=== PATIENT | male | born 1975 | race Caucasian/White ===

== ENCOUNTER → 2016-10-24 | Outpatient (CLI) | payer MEDICARE ==
[~2016-10-24] MED LIST: AMLO5TAB2 PO; ASPI81TA2 PO; ERTA1VIA IV; FLUC200T8 PO; HYDR-4072 PO; IOHEXOL 300 MG/ML 100ml INJECTION ONE; LISI-621 PO; NORMAL SALINE 100 ML ONE; POLY17PO18 PO; PRAV20TA4 PO; SALINE FLUSH 10ml SYRINGE ONE
--- NOTE | 2016-10-24 16:28 | DI ---
Indication: ITS.REASON: K65.1 Peritoneal abscess PROCEDURE: CT ABD/PELVIS W/CONTRAST ONLY: Encounter: Subsequent Comparison: October 03, 2016 Technique: Axial CT images were performed through the abdomen and pelvis after the administration of intravenous contrast. Coronal and sagittal two-dimensional reformats. Automated Exposure Control and Iterative Reconstruction dose reducing techniques were utilized. Contrast: Omnipaque 300 100 mL Findings: The lung bases are grossly clear. The liver is stable in appearance. No bile duct dilatation. The gallbladder, spleen, pancreas, adrenal glands and kidneys are unchanged. No abdominal or pelvic adenopathy. One of the prior pelvic surgical drains has been removed with a left-sided drain remaining looping within the central pelvis near the bladder. There is a persistent ring-enhancing fluid collection above the bladder base interposed between it and the sigmoid colon as seen on multiple prior studies. This collection is slightly larger today on axial image #79 measuring 2.2 x 1.6 cm. This now measures 3 cm anteroposteriorly on sagittal image #36 compared to 2.2 cm previously. No additional fluid pockets noted. There is some stable wall thickening in the mid to distal sigmoid colon. No free air identified. No evidence of a bowel obstruction. Bone windows show postoperative changes in the lumbar spine. Impression: Interval increase in size of a ring-enhancing lesion along the superior margin of the bladder near the surgical drain that could represent a phlegmon or abscess. .
== END ==
LOC: IMA 13:59
PROVIDERS: ATTEND Surgery
DX: R93.8 Abnormal findings on diagnostic imaging of other specified body structures (principal); K65.1 Peritoneal abscess
CPT/HCPCS: 36569; 74177; C1751; J7050; Q9967

== ENCOUNTER 2016-11-05 05:46 | Inpatient (IN) | payer MEDICARE ==
[2016-11-05] VITALS (32 sets, daily range): BP systolic 112–139; BP diastolic 68–83; PULSE 104–120; RESP 12–24; TEMP 98–98.6; O2SAT 90–100; Ht 175.3 cm; Wt 79.9 kg
[~2016-11-05] VITALS: Ht 175.3 cm; Wt 79.9 kg
[~2016-11-05 05:46] MED LIST changes: -IOHEXOL 300 MG/ML 100ml INJECTION ONE; -NORMAL SALINE 100 ML ONE; -SALINE FLUSH 10ml SYRINGE ONE
--- OUTSIDE RECORDS SUMMARY | 2016-11-05 05:50 | XMS REPORT | Referral Summary ---
Author Author [facility] Organization [facility] Address Unknown Phone Unavailable Care Team Providers Care Finisher Plate Name Role Phone Leandro Champange Primary Care Physician [phone] Encounter VC Date(s): 09/15/16 - 09/15/16 [facility] [address] [address] [phone] Discharge Disposition: 01-Home or Self Care Attending Physician: Roopa Lorenzo MD Admitting Physician: Roopa Lorenzo MD Vital Signs Most recent to 1 oldest [Reference Range]: Temperature Oral 36.4 degC [35.8-37.3 degC] (09/15/16 1:24 PM) Peripheral Pulse 88 bpm Rate [60-100 bpm] (09/15/16 1:24 PM) Respiratory Rate 24 br/min [14-20 br/min] *HI* (09/15/16 1:24 PM) Blood Pressure 148/80 mmHg [90-140/60-90 mmHg] *HI* (09/15/16 1:24 PM) Problem List Condition Effective Dates Status Health Status Informant Acute Resolved pain(Confirmed) At risk for Resolved infection(Confirmed) 1 Hypertension(Confirm Active patient ed) Depression(Confirmed Active patient ) Obesity(Confirmed) Active patient 1Problem added automatically by system based on initiation of At Risk for Infection in Nutrition Plan of Care Allergies, Adverse Reactions, Alerts No Known Allergies Medications aspirin 81 mg oral tablet mg tabs, Oral, Daily, 0 Refill(s) Start Date: 09/15/16 Status: Ordered Cipro 500 mg oral tablet 500 mg 1 tabs, Oral, BID, X 14 days, # 28 tabs, 0 Refill(s), other reason (Rx) Start Date: 09/04/16 Stop Date: 09/18/16 Status: Ordered Communication Patient transfered from another hospital. Refer to records for current med list and last doses. Patient states they do not take any medications at home, 0 Refill(s) Start Date: 07/07/16 Status: Ordered Flagyl 500 mg oral tablet 500 mg 1 tabs, Oral, BID, X 14 days, # 28 tabs, 0 Refill(s), other reason (Rx) Start Date: 09/04/16 Stop Date: 09/18/16 Status: Ordered lisinopril 20 mg oral tablet mg tabs, Oral, Daily, 0 Refill(s) Start Date: 09/15/16 Status: Ordered Percocet 5/325 oral tablet 1-2 tabs, Oral, q4hr, as needed for pain, # 50 tabs, 0 Refill(s), other reason ( Rx) Start Date: 09/04/16 Stop Date: 07/10/17 Status: Ordered pravastatin 20 mg oral tablet mg tabs, Oral, Daily, 0 Refill(s) Start Date: 09/15/16 Status: Ordered Results No data available for this section Immunizations No data available for this section Procedures No data available for this section Social History Social History Type Response Smoking Status Current every day smoker Assessment and Plan Extracted from: Title: Office Visit Note Author: Jay Garcia MD Date: 09/15/16 Assessment/Plan This is a 41 yo male with recent diverticulitis refractory to initial conservative therapy presented on 07/07/16 treated with abx f/u on 08/[address] still had residual abscess sent home with script of abx did not fill script until today. -was reassured that he needs to take and finish his course of abx and with a low residual diet and stool softener and no more narcotic pain meds. -we will schedule f/u in office in 4-5 week and then discuss f/u colonoscopy at that time. I have discussed the assessment and plan with Dr. Prakash Troy, The Unassigned Surgery Chief,and he agrees with the above. The attending is Dr. Lorenzo. I discussed the patient with the Resident/[facility]/PA/RN/PharmD, reviewed the chart, and concur with the assessment and plan as above.
--- OUTSIDE RECORDS SUMMARY | 2016-11-05 05:50 | XMS REPORT ---
Author Author Laurent Champagne [facility] Address [address] [place] [address] Care Team Providers Care Risk Developer Name Role Phone Laurent Champagne Unavailable [phone] PROBLEMS Type Condition ICD9-CM Code [id number] Code Onset Dates Condition Status SNOMED Code Problem Diverticulosis of intestine, part unspecified, without perforation or abscess without bleeding K57.90 Active 46639231 Problem Essential (primary) hypertension I10 Active [id number] ALLERGIES Unknown Allergies SOCIAL HISTORY No smoking Hx information available PLAN OF CARE VITAL SIGNS MEDICATIONS Medication Instructions Dosage Frequency Start Date End Date Duration Status Lisinopril 10 MG Orally Once a day 1 tablet 24h 30 days Active RESULTS No Results PROCEDURES No Known procedures IMMUNIZATIONS No Known Immunizations
--- OUTSIDE RECORDS SUMMARY | 2016-11-05 05:51 | XMS REPORT | Continuity of Care Document ---
Author Author [facility] Organization [facility] Address Unknown Phone Unavailable Support Name Relationship Address Phone XENIA WALTERS MD Caregiver [address] [place] [phone] Unavailable XENIA WALTERS MD Caregiver [address] [place] [phone] Unavailable ZHANNA CHAMPAGNE DO Caregiver [address] [place] [address] Unavailable NICOLASA SEGURA MD Caregiver [address] [place] [address] [place] [phone] Unavailable ALESSANDRA CABRERA Next Of Kin [address] [place] [address] [id number] Insurance Providers Guarantor Anastacia Cabrera Address [address] [place], [place] [id number] Email DENIED 09-22-16 Payer Medicare Policy Number [id number] Subscriber's Name Anastacia Cabrera Relationship 18 Self Advance Directives Directive Response Recorded Date/Time Ordered Resuscitation Status Full Code 09/22/16 11:32am Resuscitation Documents on File No 09/22/16 12:05pm DPOA for Healthcare Only No 09/22/16 12:38pm Living Will No 09/22/16 12:05pm Problems Active Problems Medical Problem Onset Date Status Abdominal pain Unknown Acute Anxiety Unknown Acute Back pain Unknown Chronic Chronic back pain Unknown Diet-controlled diabetes mellitus Unknown Chronic Failure of outpatient treatment Unknown Acute HTN (hypertension) Unknown Chronic Hx of acute pancreatitis Unknown Ileus following gastrointestinal surgery Unknown Acute Kidney stones Unknown Obesity Unknown Chronic Shoulder pain Unknown Chronic Tobacco use disorder Unknown Chronic Surgical Problem Onset Date Status History of spinal arthrodesis ~2005 Chronic Past Problems Medical Problem Onset Date Abdominal abscess Unknown Abscess of sigmoid colon due to diverticulitis Unknown Acute diverticulitis Unknown Acute diverticulitis Unknown Diverticulitis Unknown Medications Current Home Medications Medication Dose Units Route Directions Days Qty Instructions Start Date Amlodipine Besylate 5 Mg Tablet 5 Mg Oral Daily 30 Tablet for elevated blood pressure 10/03/16 Aspirin 81 Mg Tab.chew 81 Mg Oral Daily 09/19/16 Ertapenem Sodium (Invanz) 1 G/Vial Vial 1 G Intraven Daily 30 Days 10/03/16 Fluconazole 200 Mg Tablet 2 Tab Oral Daily 30 Days 60 Tablet 10/03/16 Hydrocodone/Acetaminophen (Hydrocodon-Acetaminoph 7.5-325) 7.5-325 Tablet 1 Tab Oral Every 6 Hours as needed for Pain [address] or operate heavy machinery if taking this medication 10/03/16 Lisinopril 20 Mg Tablet 20 Mg Oral Daily 09/19/16 Polyethylene Glycol 3350 (Healthylax) 17 Gm Powd.pack 17 G Oral Daily 1 Bottle 10/03/16 Pravastatin Sodium 20 Mg Tablet 20 Mg Oral Daily 09/19/16 Past Home Medications Medication Directions Ordered Status Ciprofloxacin Hcl (Cipro) 500 Mg Tablet, 500 Mg Oral Twice A Day 09/19/16 Discontinued Ciprofloxacin Hcl (Cipro) 500 Mg Tablet, 500 Mg Oral Every 12 Hours 06/29/16 Discontinued Ibuprofen 200 Mg Tablet, 800 Mg Oral Every 4 Hours as needed for Pain Discontinued Metronidazole 500 Mg Tablet, 500 Mg Oral Twice A Day 09/19/16 Discontinued Metronidazole (Flagyl) 500 Mg Tablet, 500 Mg Oral Four Times Daily 06/29/16 Discontinued Social History Social History Problem Response Recorded Date/Time Onset Date Status Reason for Hospitalization abd pain and chronic abd abscess 10/03/2016 3: 25pm Not Applicable Not Applicable Hx Substance Use No 09/22/2016 9:03am Not Applicable Not Applicable Hx Alcohol Use No 09/22/2016 9:03am Not Applicable Not Applicable Has the pt used tobacco in the last 12 months Yes 09/22/2016 12:15pm Not Applicable Not Applicable Query Response Start Date Stop Date Smoking Status Current every day smoker Hospital Discharge Instructions Instructions: Care Instructions: Reason for Hospitalization: abd pain and chronic abd abscess I was in the hospital because (patient own words): diverticulitis infection on the colon Discharge Diet: diabetic diet Discharge Activity: No lifting > 15 pounds for a month following surgery. You can otherwise resume your usual activity as tolerated. Walk frequently to avoid forming blood clots in your legs. No tub baths or swimming with iv Midline in place. You may shower in 2 days, but will need to wrap your iv in plastic wrap then put a plastic bag taped around your arm. Follow Up Appointments: Follow up with Dr. Schmidt on Thursday10/07/16 at 9:00. Call [phone] if you need to reschedule your appointment. Pending Lab / Results: No Pending Lab Patient Instructions: - Do not drive, operate machinery, drink alcohol, or sign important papers for 24 hours or while taking pain medication. - Strip the drain tubing and empty your drain 3 times a day. Record you outputs and bring the record to your clinic visit with Dr. Schmidt. Wound/Incision Care: You can remove your bandage over the drain site in the right lower abdomen after [address] another bandage over the top if drainage continues. - You may shower after 48 hours. - No tub baths or swimming for 2 weeks. Pain Scale Utilized to Educate Patient: 0-10 Pain Scale Pain Management/Treatment: For management of you postoperative pain consider the following: - You may take Ibuprofen IN ADDITION to Tylenol or pain pills for pain. - You may take regular strength Tylenol (325 mg) INSTEAD of any pain pill dose. (No more than 10 tablets including pain pills and regular strength Tylenol in a 24 hour period). Expected Signs/Symptoms: mild abdominal discomfort Notify Physician If: Contact physician if any of the following occur: - Your pain is not adequately controlled. - You have persistent nausea or vomiting for more than 24 hours. - You have a fever over 101.5 degrees. - You develop redness, swelling, increasing pain, excessive bleeding, or excessive/foul smelling drainage at your incision site. - You have pain and/or swelling in your feet, calves, or legs. - You have difficulty breathing, abnormal cough, or chest pain. During office hours, call [phone]. After hours, please call [facility] at [phone] and have the video presentation operator page Dr. Schmidt or the covering surgeon. *In the event of an emergency, seek medical care at the nearest emergency room.* During Business Hours:: Please call the physician's office at Dr Champagne's or Dr Schmidt's office After Business Hours:: Please call [phone] and have the video presentation operator page the physician. Condition at time of discharge: Good Plan of Care Discharge Date 10/03/16 4:50pm Disposition 01 DISCHARGED HOME, SELF-CARE Instructions/Education Provided Diverticulitis (DC) Stephan-Carter Drain Care (DC) Exploratory Laparotomy (DC) Lysis of Abdominal Adhesions (DC) Prescriptions See Medication Section Additional Instructions/Education CBC with differential and CMP every Thursday while on IV Invanz and oral fluconazole. Fax to Dr. Naveen Mckeon and Dr. Mandy Schmidt. Care Plan and Goals See Discharge Instructions Section Functional Status Query Response Date Recorded Mobility Status Ambulatory October 03, 2016 3:25pm Assistive Devices None October 03, 2016 3:25pm Activity Limitations Pain October 03, 2016 3:25pm Feeding Ability Independent October 03, 2016 3:25pm Toileting Ability Independent October 03, 2016 3:25pm Grooming Ability Independent October 03, 2016 3:25pm Dressing Ability Independent October 03, 2016 3:25pm Driving Ability Independent October 03, 2016 3:25pm Housework Ability Independent October 03, 2016 3:25pm Meal Preparation Ability Independent October 03, 2016 3:25pm Stair Climbing Ability Independent October 03, 2016 3:25pm Ability to complete ADL's impeded by No change October 03, 2016 3:25pm Cognitive/Perceptual Impairments Impaired vision October 03, 2016 3:25pm Visual Assistive Devices Glasses With patient October 01, 2016 4:11pm Preferred Method of Learning Hands on October 01, 2016 4:11pm Allergies, Adverse Reactions, Alerts No known allergies. Immunizations Query Response on File Recorded Date/Time Hx Influenza Vaccination N Refuses 09/22/16 12:15pm Hx Pneumococcal Vaccination No 09/22/16 12:15pm Hx Influenza Vaccination N Refuses 09/22/16 12:15pm Influenza Vaccine Hx NONE 09/22/16 9:03am Vital Signs Acute Vital Signs Vital Response Date/Time Temperature (Fahrenheit) 98.3 deg F (96.8 - 99.1) 10/03/2016 8:04am Temperature (Calculated Celsius) 36.45571 degrees C (36.0 - 37.3) 10/03/2016 8:04am Temperature Source Oral 10/03/2016 8:04am Pulse Rate (adult) 82 bpm (60 - 100) 10/03/2016 8:04am Respiratory Rate 18 breaths/min (10 - 20) 10/03/2016 8:04am O2 Sat by Pulse Oximetry 96 % (90 - 100) 10/03/2016 8:04am Oxygen Delivery Method Room Air 10/03/2016 8:04am Oxygen Delivery Method Room Air 09/29/2016 2:59pm Oxygen Flow Rate 1.00 L/min 09/27/2016 10:29pm Blood Pressure 138/94 mm Hg 10/03/2016 8:04am Blood Pressure Source Automatic Cuff 10/03/2016 8:04am Height (Feet) 5 feet 10/02/2016 6:09pm Height (Inches) 9.00 inches 10/02/2016 6:09pm Weight (Kilograms) 88.900 kg 10/03/2016 8:03am Body Mass Index (BMI) 30.2 09/22/2016 11:49am Results Laboratory Results Test Name Result Units Flags Reference Collection Date/Time Result Date/ Time Comments C-Reactive Protein 56.9 MG/L H 0-9 07/07/2016 4:20am 07/07/2016 5:19am Plasma Lactate 0.9 MMOL/L 0.6-2.2 09/19/2016 3:04pm 09/19/2016 3:21pm White Blood Count 9.4 T/MM3 4.5-11.0 10/02/2016 4:10/02/2016 5: 40am Red Blood Count 4.08 M/MM3 L 4.50-5.90 10/02/2016 4:10/02/2016 5: 40am Hemoglobin 11.8 GM/DL L 13.5-17.5 10/02/2016 4:10/02/2016 5:40am Hematocrit 36.3 % L 41-53 10/02/2016 4:10/02/2016 5:40am Mean Corpuscular Volume 89.0 UM3 80-100 10/02/2016 4:10/02/2016 5: 40am Mean Corpuscular Hemoglobin 28.9 UUG 26-34 10/02/2016 4:2016 5:40am Mean Corpuscular Hemoglobin Concent 32.5 GM/DL 31-37 10/02/2016 4:10/02/2016 5:40am RDW Standard Deviation 41.6 FL 36.9-50.2 10/02/2016 4:10/02/2016 5 :40am Platelet Count 337 T/MM3 130-400 10/02/2016 4:10/02/2016 5:40am Mean Platelet Volume 10.5 UM3 9.4-12.4 10/02/2016 4:34am 10/02/2016 5: 40am Neutrophils (%) (Auto) 59.1 % 33-66 10/01/2016 3:48am 10/01/2016 5: 11am Lymphocytes (%) (Auto) 25.5 % 23-45 10/01/2016 3:48am 10/01/2016 5: 11am Monocytes (%) (Auto) 8.1 % 0-9.0 10/01/2016 3:48am 10/01/2016 5:11am Eosinophils (%) (Auto) 5.2 % H 0-4 10/01/2016 3:48am 10/01/2016 5:11am Basophils (%) (Auto) 0.7 % 0-2 10/01/2016 3:48am 10/01/2016 5:11am Immature Granulocyte % (Auto) 1.4 % H 0.0-0.5 10/01/2016 3:48am 2016 5:11am Absolute Neutrophils (auto) 6.1 T/MM3 1.8-7.7 10/01/2016 3:48am 2016 5:11am Absolute Lymphocytes (auto) 2.6 T/MM3 1-4.8 10/01/2016 3:48am 2016 5:11am Absolute Monocytes (auto) 0.8 T/MM3 0-0.8 10/01/2016 3:48am 10/01/2016 5:11am Absolute Eosinophils (auto) 0.5 T/MM3 0-0.5 10/01/2016 3:48am 2016 5:11am Absolute Basophils (auto) 0.1 T/MM3 0-0.2 10/01/2016 3:48am 10/01/2016 5:11am Absolute Immature Granulocyte (auto 0.14 T/MM3 H 0.00-0.03 10/01/2016 3: 48am 10/01/2016 5:11am Neutrophils % (Manual) 55.0 % 33-66 10/02/2016 4:34am 10/02/2016 6: 36am Band Neutrophils % 4.0 % 0-6 10/02/2016 4:34am 10/02/2016 6:36am Lymphocytes % (Manual) 26.0 % 23-45 10/02/2016 4:[facility] 10/02/2016 6: 36am Monocytes % (Manual) 6.0 % 0-9.0 10/02/2016 4:[facility] 10/02/2016 6:36am Eosinophils % (Manual) 7.0 % H 0-4 10/02/2016 4:34a 10/02/2016 6:36am Basophils % (Manual) 2.0 % 0-2 10/02/2016 4:[facility] 10/02/2016 6:36am Band Neutrophils # 0.4 T/MM3 10/02/2016 4:[facility] 10/02/2016 6:36am Absolute Neutrophils (Manual) 5.2 T/MM3 1.8-7.7 10/02/2016 4:[facility] 10/02 6:36am Lymphocytes # (Manual) 2.4 T/MM3 1-4.8 10/02/2016 4:[facility] 10/02/2016 6: 36am Monocytes # (Manual) 0.6 T/MM3 0-0.8 10/02/2016 4:[facility] 10/02/2016 6: 36am Eosinophils # (Manual) 0.7 T/MM3 H 0-0.5 10/02/2016 4:[facility] 10/02/2016 6: 36am Basophils # (Manual) 0.2 T/MM3 0-0.2 10/02/2016 4:[facility] 10/02/2016 6: 36am Red Cell Morphology Comment NORMAL 10/02/2016 4: 10/02/2016 6: 36am Prothromb Time International Ratio 1.16 H 0.76-1.04 09/23/2016 4:52am 09/23/2016 5:35am THERAPUTIC RANGE=2.00-3.00 FOR ANTI-THROMBOSIS THERAPUTIC RANGE=2.50-3.50 FOR IMPLANTED VALVE Icterus Index < 2 0-7 10/02/2016 4:[facility] 10/02/2016 5:55am Chemistry Specimen Hemolysis < 15 0-25 10/02/2016 4:[facility] 10/02/2016 5 :55am 0-25: Specimen Exhibited No Hemolysis. Turbidity < 20 0-20 10/02/2016 4:34a 10/02/2016 5:55am Sodium Level 139 MEQ/L 134-144 10/02/2016 4:10/02/2016 5:55am Potassium Level 4.0 MEQ/L 3.6-5 10/02/2016 4:10/02/2016 5:55am Chloride Level 103 MEQ/L 98-107 10/02/2016 4:10/02/2016 5:55am Carbon Dioxide Level 27 MEQ/L 22-30 10/02/2016 4:10/02/2016 5: 55am Anion Gap 9 MEQ/L 5-15 10/02/2016 4:10/02/2016 5:55am Blood Urea Nitrogen 10.0 MG/DL 9-10/02/2016 4:10/02/2016 5: 55am Creatinine 0.7 MG/DL L 0.8-1.5 10/02/2016 4:10/02/2016 5:55am BUN/Creatinine Ratio 14 RATIO 6-10/02/2016 4:10/02/2016 5:55am Glomerular Filtration Rate Calc 124 10/02/2016 4:10/02/2016 5: 55am Glucose Level 91 MG/DL 75-110 10/02/2016 4:10/02/2016 5:55am Calculated Osmolality 267 MOSM/KG 261-280 10/02/2016 4:10/02/2016 5:55am Calcium Level 8.9 MG/DL 8.4-10.2 10/02/2016 4:10/02/2016 5:55am Phosphorus Level 4.0 MG/DL 2.5-4.5 09/27/2016 4:2209/27/2016 5:15am Total Bilirubin 0.60 MG/DL 0.20-1.30 09/29/2016 3:55am 09/29/2016 6: 03am Alkaline Phosphatase 73 U/L 38-126 09/29/2016 3:55am 09/29/2016 6:03am Total Protein 6.5 G/DL 6.3-8.2 09/29/2016 3:55am 09/29/2016 6:03am Albumin 3.4 G/DL L 3.5-5.0 09/29/2016 3:55am 09/29/2016 6:03am Globulin 3.1 G/DL 2.4-3.6 09/29/2016 3:55am 09/29/2016 6:03am Albumin/Globulin Ratio 1.1 RATIO 1.1-2.2 09/29/2016 3:55am 09/29/2016 6 :03am Aspartate Amino Transf (AST/SGOT) 19 U/L 17-59 09/29/2016 3:55am 2016 6:03am Alanine Aminotransferase (ALT/SGPT) 31 U/L 21-72 09/29/2016 3:55am 6:03am Lipase 35 U/L 23-300 09/22/2016 9:59am 09/22/2016 10:24am Magnesium Level 2.1 MG/DL 1.6-2.3 09/30/2016 3:56am 09/30/2016 5:33am Procalcitonin 0.09 NG/ML 09/29/2016 3:55am 09/29/2016 6:41am PCT </= 0.5 ng/mL - sepsis not likely; PCT >0.5 and </=2 ng/mL - sepsis possible; PCT >2 ng/mL - sepsis likely; PCT >/=10 ng/mL - systemic inflammatory response - sepsis or septic shock highly indicated. Vancomycin Level Trough 20.35 UG/ML H 15-20 10/03/2016 1:29am 2016 2:00am Hemoglobin A1c 6.6 % 6.1-7.9 09/22/2016 9:59am 09/22/2016 1:25pm <6.0 NON-DIABETIC RANGE 6.1-7.9 [facility] TARGET RANGE >8.0 ACTION SUGGESTED Urine Collection Type CLEANCATCH-MIDSTREAM 10/01/2016 9:32am 2016 9:44am Urine Color YELLOW YELLOW 10/01/2016 9:32am 10/01/2016 9:44am Urine Turbidity CLEAR CLEAR 10/01/2016 9:32am 10/01/2016 9:44am Urine Specific [place] 1.025 1.015-1.025 10/01/2016 9:32am 2016 9:44am Urine pH 6.5 5.0-8.0 10/01/2016 9:32am 10/01/2016 9:44am Urine Leukocyte Esterase NEGATIVE NEGATIVE 10/01/2016 9:32am 2016 9:44am Urine Nitrite NEGATIVE NEGATIVE 10/01/2016 9:32am 10/01/2016 9:44am Urine Protein NEGATIVE NEGATIVE 10/01/2016 9:32am 10/01/2016 9:44am Urine Glucose (UA) NEGATIVE NEGATIVE 10/01/2016 9:32am 10/01/2016 9: 44am Urine Ketones NEGATIVE NEGATIVE 10/01/2016 9:32am 10/01/2016 9:44am Urine Urobilinogen 0.2 EU/DL NORMAL 10/01/2016 9:32am 10/01/2016 9: 44am Urine Bilirubin NEGATIVE NEGATIVE 10/01/2016 9:32am 10/01/2016 9: 44am Urine Blood TRACE-INTACT A NEGATIVE 10/01/2016 9:32am 10/01/2016 9: 44am Urinalysis Comment MICROSCOPIC NOT IND. 10/01/2016 9:32am 2016 9:44am Glucometer 116 mg/dL H 75-110 10/03/2016 2:20pm 10/03/2016 2:36pm Microbiology Results Procedure Source Organism/Result Collection Date/Time Result Date/Time Result Status Surgical Culture Abscess ESCHERICHIA COLI 09/24/2016 2:45pm 09/28/2016 8: 09am Final ESCHERICHIA COLI#2 09/24/2016 2:45pm 09/28/2016 8:09am Final Blood Culture Cath/Port/Line/Picc NO GROWTH AFTER 4 DAYS 09/29/2016 12: 18am 10/03/2016 12:22am Preliminary Name: ANASTACIA CABRERA Unit #: [id number] : 1975 Sex: M DISCHARGE SUMMARY Admit Date: 09/22/16 Report #: [id number] [facility] General Date Date DATE: 10/03/16 TIME: 15:23 Attending Physician Xenia Walters MD Admitting Physician Xenia Walters MD Consulting Physician Naveen Mckeon MD Admitting Diagnosis acute diverticulitis Discharge Diagnosis Chronic diverticular abscess Leukocytosis Fever Abdominal pain Postop ileus Type 2 diabetes mellitus-diet controlled Hypertension Hyperlipidemia Chronic back pain Tobacco use disorder Anxiety Procedures 09/24/2016 -surgical procedure by Dr. Schmidt Diagnostic laparoscopy with lysis of adhesions, conversion to exploratory laparotomy, open lysis of pelvic adhesions and drainage of intra-abdominal abscess with drain placement 2 , primary incisional hernia repair, intraoperative ultrasound of the lower abdomen in the region of the bladder. Laboratory Item Value Date Time Hemoglobin A1c 6.6 % 09/22/16 0959 Laboratory Tests Test 10/02/16 04:34 10/02/16 05:28 10/02/16 13:54 10/02/16 21:09 White Blood Count 9.4T/MM3 (4.5-11.0) Red Blood Count 4.08M/MM3 (4.50-5.90) Hemoglobin 11.8GM/DL (13.5-17.5) Hematocrit 36.3% (41-53) Mean Corpuscular Volume 89.0UM3 (80-100) Mean Corpuscular Hemoglobin 28.9UUG (26-34) Mean Corpuscular Hemoglobin Concent 32.5GM/DL (31-37) RDW Standard Deviation 41.6FL (36.9-50.2) Platelet Count 337T/MM3 (130-400) Mean Platelet Volume 10.5UM3 (9.4-12.4) Neutrophils % (Manual) 55.0% (33-66) Band Neutrophils % 4.0% (0-6) Lymphocytes % (Manual) 26.0% (23-45) Monocytes % (Manual) 6.0% (0-9.0) Eosinophils % (Manual) 7.0% (0-4) Basophils % (Manual) 2.0% (0-2) Absolute Neutrophils (Manual) 5.2T/MM3 (1.8-7.7) Band Neutrophils # 0.4T/MM3 Lymphocytes # (Manual) 2.4T/MM3 (1-4.8) Monocytes # (Manual) 0.6T/MM3 (0-0.8) Eosinophils # (Manual) 0.7T/MM3 (0-0.5) Basophils # (Manual) 0.2T/MM3 (0-0.2) Red Cell Morphology Comment Normal Turbidity < 20 (0-20) Sodium Level 139MEQ/L (134-144) Potassium Level 4.0MEQ/L (3.6-5) Chloride Level 103MEQ/L (98-107) Carbon Dioxide Level 27MEQ/L (22-30) Anion Gap 9MEQ/L (5-15) Blood Urea Nitrogen 10.0MG/DL (9-20) Creatinine 0.7MG/DL (0.8-1.5) Glomerular Filtration Rate Calc 124 BUN/Creatinine Ratio 14RATIO (6-26) Glucose Level 91MG/DL (75-110) Calculated Osmolality 267MOSM/KG (261-280) Calcium Level 8.9MG/DL (8.4-10.2) Icterus Index < 2 (0-7) Chemistry Specimen Hemolysis < 15 (0-25) Glucometer 96mg/dL (75-110) 120mg/dL (75-110) 141mg/dL (75-110) Test 10/03/16 01:29 10/03/16 05:31 10/03/16 10:34 10/03/16 14:20 Vancomycin Level Trough 20.35UG/ML (15-20) Glucometer 103mg/dL (75-110) 99mg/dL (75-110) 116mg/dL (75-110) Microbiology GRAM STAIN Final 09/25/16-1229 RESULT FEW GRAM NEGATIVE RODS MANY WBCS SURGICAL SITE CULTURE Final 09/28/16-0811 Organism 1 ESCHERICHIA COLI Organism 2 ESCHERICHIA COLI#2 E COLI E COLI#2 INTERP LE INTERP LE ------ --------- ------ --------- AMPICILLIN R >=32 R >=32 CEFAZOLIN R >=64 S <=4 CEFEPIME S <=1 S <=1 CEFTAZIDIME S <=1 S <=1 CEFTRIAXONE S <=1 S <=1 ERTAPENEM S <=0.5 S <=0.5 GENTAMICIN S <=1 S <=1 LEVOFLOXACIN R >=8 R >=8 MEROPENEM S <=0.25 S <=0.25 TIGECYCLINE S <=0.5 S <=0.5 TOBRAMYCIN S <=1 S <=1 TRIMETH/SULFA R >=320 R >=320 PIPERACILL/TAZO R >=128 S <=4 SURGICAL SITE CULTURE Preliminary (changed) 09/28/16-0809 Organism 1 ESCHERICHIA COLI Organism 2 ESCHERICHIA COLI#2 Blood cultures 2 from 09/29/2016 are negative after [address] abdomen and pelvis on 10/03/2016 shows interval improvement in the small abscess along the superior margin of the bladder with a small area of extraluminal fluid remaining with a nearby surgical drain. No evidence of contrast extravasation to confirm a fistula. Mild sigmoid colonic wall thickening probably related to the recent surgery. Chest x-ray 09/29/2016 done for fever shows bibasilar subsegmental atelectasis. Postop KUB 09/27/2016 shows colonic ileus Postop KUB 09/29/2016 shows continued findings of adynamic ileus probably involving the colon, mildly improved KUB 10/01/2016 shows improving ileus which has nearly resolved. Moderate stool in the right colon. History of Present Illness Patient is a 41 yr old male who present to the emergency room on Thursday09/19/16 for abdominal pain. He was found to have persistent findings of pericolonic diverticular abscess superimposed between the sigmoid colon and the bladder. This is a similar appearance and abscess from last June 2016. He was started on Flagyl and Cipro orally and instructed to follow-up with primary care and/or general surgeon. He returns to the emergency room today for ongoing abdominal pain. Basic laboratory studies were repeated. White count was found to be improved at 9.3, which is down from Thursday at 12.5. Remaining CBC was normal. Sodium is 142, potassium 4.4, BUN 12, creatinine 0.7, glucose 133. LFTs were normal. A urinalysis is obtained that was unremarkable. Given increasing pain with known presence of the abscess. The hospitalist services were contacted and accepted patient for inpatient admission for further evaluation and treatment. Dr. Schmidt was contacted as the on-call general surgeon. Patient is seen on initial examination. He is alert and oriented, in no acute distress. Complains of having bilateral lower abdominal discomfort that continues to worsen over the past 3 days. Denies vomiting or diarrhea. Was able to eat 3 hot dogs and chips last evening, however , has not had an appetite this morning. Hospital Course Will admit patient as inpatient status under the care of Dr. Walters for abdominal pain with known abdominal abscess. Well switch patient to IV Zosyn for antimicrobial coverage. Consultations placed to Dr. Schmidt for further surgical evaluation and recommendations. Patient does indicate that he is a type II diabetic that is diet controlled. We will obtain a hemoglobin A1c. Accu-Cheks as needed Patient does indicate that he had a black stool. We will obtain a stool for occult blood Will review home medications Dilaudid as needed for pain control and Zofran as needed for nausea 09/23/2016-Dr. Walters Abdominal abscess secondary to diverticulitis. Per Dr. Schmidt, this had not resolved after original occurrence in June 2016. The patient was originally sent to [place] for CT-guided drainage but the ultimate decision was to treat with antibiotics. He was then later seen for possible CT guided drainage again and they decided that the area where the abscess was located was not amenable to CT-guided drainage. Abdominal pain-improved on narcotics Diet controlled diabetes-give sliding scale insulin as needed. A1c is 6.6 Hypertension-continue lisinopril as tolerated 09/24/16 Underwent open laparotomy with drainage of abscess and placement drains earlier today. Discussed with Dr. Schmidt. Continue IV narcotics for pain control, IV lorazepam added per family request for anxiety. Patient reports that he has tolerated Percocet better than [place] for pain management-change made. Addition of oral narcotic will hopefully smooth pain control. Diabetes well controlled, continue to monitor with resumption of diet over the next couple of days. Blood pressure modestly elevated in the immediate postoperative time. 09/25/16 Underwent open laparotomy with drainage of abscess and placement drains . Scheduled [place] 7.5-2 tablets every 6 hours initiated to provide basal pain control, IV Dilaudid continued for breakthrough pain. Oral lorazepam initiated in conjunction with IV for anxiety. LYRIC [place], up in chair/ambulate today. Diabetes, blood pressure both stable. Gram stain pending from surgical sample-will call bacteriology to clarify. 09/26/16 Underwent open laparotomy with drainage of abscess and placement drains . Wound culture positive for multidrug-resistant Escherichia coli-converted from Zosyn to ertapenem. If additional organisms are not identified can potentially simplify to ceftriaxone. Pain control improving on [place] 7.5-2 tablets every 6 hours and IV Dilaudid continued for breakthrough pain. Remains on clear liquids, check KUB in the morning. Diabetes stable, diet controlled. Blood pressure elevated repetitively today-amlodipine added to her home dose of lisinopril. Decrease rate of IV fluids, taking oral fluids well. White count slightly elevated today, low-grade fever overnight. Reassess in the morning. 09/27/16 Underwent open laparotomy with drainage of abscess and placement drains . Wound culture positive for multidrug-resistant Escherichia coli-converted from Zosyn to ertapenem. If additional organisms are not identified can potentially simplify to ceftriaxone. Pain control improving on [place] 7.5-2 tablets every 6 hours and IV Dilaudid continued for breakthrough pain-decreased use of Dilaudid over the past 24 hours. Dulcolax suppositories every 6 hours for ileus, reassess need tomorrow. Continued ambulation recommended. Remains on clear liquids. Diabetes stable, diet controlled. Blood pressure improved with addition of amlodipine. Decrease rate of IV fluids, taking oral fluids well. Continues to have low-grade fever and minor leukocytosis-may require CT imaging. 09/28/16 Oral intake diminished over the past 24 hours with emesis today; resume IV fluids. Patient describes uncontrolled pain but use of IV narcotics has decreased and his going 3-6 hours between use of Dilaudid compared to consistent 2 hour use earlier in the stay. Continue Dulcolax suppositories every 6 hours for ileus, recheck obstructive series in the morning Continue clear liquids. Diabetes stable, diet controlled. Blood pressure improved with addition of amlodipine. Fever and leukocytosis have improved with change in antibiotics. Continue to monitor. 09/29/16 Underwent open laparotomy with drainage of abscess and placement drains . Recurrent fever overnight and white count slightly higher. Discussed with surgery; if persistent fevers may require repeat imaging or ID consultation. BCx2 obtained overnight and Vanc added. Clinically looks better today and chest x-ray unremarkable other than atelectasis. Procalcitonin low. Patient encouraged to increase activity and lung expansion therapies. Wound culture positive for 2 strains multidrug-resistant Escherichia coli- converted from Zosyn to ertapenem on 09/26. Oral intake marginal. Patient reports less pain today but Dilaudid use has escalated in the past 24 hours. Dulcolax suppositories every 6 hours as needed for ileus. Continue clear liquids. Diabetes stable, diet controlled. Blood pressure improved with addition of amlodipine. 09/30: [place]. Underwent open laparotomy with drainage of abscess and placement drains . Off and on fevers since surgery. Max temperature 99.3 today. WBC trending down at 11.7 (down from 14.9 yesterday). If fever persists or worsen, consider repeat imaging and/or ID consultation. Blood cultures x2 negative after 24 hours. Continue to monitor. Continue Invanz and Vancomycin for empiric coverage of abdominal pathogens while awaiting culture results. Patient has ambulated and encouraged to increase activity and lung expansion therapies. Review of incentive spirometry technique and importance discussed. Wound culture positive for 2 strains multidrug-resistant Escherichia coli- converted from Zosyn to ertapenem on 09/26. Diet advanced to full. Recommended transitioning slowly to solid foods including starting with soap and crackers as he complained of nausea with peanut butter and jelly sandwich. Complains of severe pain despite frequent dosages of Dilaudid and is noted to be watching the clock during exam, waiting until he can call for more. Consider tapering IV pain medication and transitioning to oral pain medication. Dulcolax suppositories every 6 hours as needed for ileus. Diabetes stable, diet controlled. Blood sugars stable. Continue to monitor closely. Blood pressure improved but remains slightly elevated at 143/98. Continue to monitor closely with recent addition of amlodipine. Overall, he is doing better and making slow gains. Anticipate discharge in near future. 09/30/2016-Dr. Colin I have independently evaluated and examined this patient. I reviewed the chart, the patient's history, and the AGENCY SALES REPRESENTATIVE's documented findings as above. We discussed and formulated the assessment and plan as above with additions as below: Anastacia reports having 2 small stools yesterday without suppositories preceding them. He continues to complain of nausea but has had no emesis. Diet was advanced earlier. He denies lightheadedness or dyspnea. He is complaining of dysuria this evening and reports abdominal pain is persistent and localized in the right lower quadrant and over the bladder. Examination reveals the patient to be alert. There is no scleral icterus area respirations are nonlabored. The abdomen is soft and unable to palpate the abdomen more than in the past but there is persistent tenderness in the right lower quadrant with voluntary guarding. Maximum temperature last night was 99.4 and white count is down after addition of vancomycin 2 days ago. Cannot exclude the possibility of staph or enterococcus the abscess that was not cultured. Continues to use high-dose narcotics-Dilaudid dose decreased and frequency extended to every 3 hours, oral narcotics available. Tramadol added as an alternative. KUBs to be reassessed tomorrow morning. Check UA. 10/03/2016-Dr. Walters The patient is feeling very well today. He feels ready for discharge. Pain is controlled with [place]. He is eating and drinking well. He states his stools are like water, likely secondary to MiraLAX 3 times a day. This can be decreased to once a day. Dr. Mckeon did see the patient and recommends Invanz 1 g IV daily for one month and Diflucan 400 mg once daily. Repeat CT scan of the abdomen was obtained with results as above. This does show improvement. Dr. Schmidt did review the CT scan and stated to me that he felt he was stable for dismissal to home. He will need follow-up with him in the office next week for suture removal and recheck. The patient was notified that if he should develop fevers, worsening abdominal pain, severe diarrhea that does not resolve with stopping MiraLAX, or any other concerns he should call his doctor or go to the emergency room. He does appear stable for dismissal to home today. He knows he cannot take dry 15 taking narcotics. We discussed the risk for addiction. I would recommend the smallest amount of narcotics needed for pain control, and only take for moderate or severe pain. Greater than 30 minutes of time was spent on dismissal day seeing and evaluating the patient, talking with consultants, and arranging discharge planning. I will notify Dr. Champagne of discharge plans. Problems: (1) Ileus following gastrointestinal surgery Status: Acute (2) Abdominal pain Status: Acute (3) Abdominal abscess Status: Chronic Assessment & Plan: Abscess was present in June 2016-chronic. This had never resolved. (4) Diet-controlled diabetes mellitus Status: Chronic Assessment & Plan: A1C 6.6 on 09/22/16 (5) Anxiety Status: Acute (6) HTN (hypertension) Status: Chronic (7) Back pain Status: Chronic (8) Tobacco use disorder Status: Chronic (9) History of spinal arthrodesis Onset Date: ~ 2005 Status: Chronic Code Status Full Code Home Meds Active Scripts Ertapenem Sodium (Invanz) 1 G/Vial Vial, 1 G IV DAILY for 30 Days Prov:XENIA WALTERS MD 10/03/16 Hydrocodone/Acetaminophen (Hydrocodon-Acetaminoph 7.5-325) 7.5-325 Tablet, 1 TAB PO Q6H Y for pain, #[address] or operate heavy machinery if taking this medication Prov:XENIA WALTERS MD 10/03/16 Fluconazole (Fluconazole) 200 Mg Tablet, 2 TAB PO DAILY for 30 Days, #60 TAB Prov:XENIA WALTERS MD 10/03/16 Polyethylene Glycol 3350 (Healthylax) 17 Gm Powd.pack, 17 G PO DAILY, #1 BOTTLE Prov:XENIA WALTERS MD 10/03/16 Amlodipine Besylate (Amlodipine Besylate) 5 Mg Tablet, 5 MG PO DAILY, #30 TAB for elevated blood pressure Prov:XENIA WALTERS MD 10/03/16 Reported Medications Lisinopril (Lisinopril) 20 Mg Tablet, 20 MG PO DAILY 09/19/16 Aspirin (Aspirin) 81 Mg Tab.chew, 81 MG PO DAILY 09/19/16 Pravastatin Sodium (Pravastatin Sodium) 20 Mg Tablet, 20 MG PO DAILY 09/19/16 Discontinued Reported Medications Ciprofloxacin HCl (Cipro) 500 Mg Tablet, 500 MG PO BID for 14 Days starting 09/08/16 09/19/16 Metronidazole (Metronidazole) 500 Mg Tablet, 500 MG PO BID for 14 Days starting 09/08/16 09/19/16 Ibuprofen (Ibuprofen) 200 Mg Tablet, 800 MG PO Q4H Y for PAIN, TAB 06/29/16 Face to Face Encounter I met with patient on the day of dismissal and discussed follow up appointments , medications, and safety plan. Discharge Disposition Dismiss to home in stable condition Copies To 1: NAVEEN MCKEON MD; MANDY SCHMIDT MD; ZHANNA CHAMPAGNE STEPHANIE L MD Oct 03, 2016 15:26 Addendum: XENIA WALTERS MD on 10/03/16 @ 15:42 Follow-up with Dr. Champagne in 1-2 weeks for diabetes and hypertension Follow-up with Dr. Naveen Mckeon in 3 weeks. CBC with differential, and CMP every Thursday while on IV Invanz and oral fluconazole. Fax to Dr. Mckeon and Dr. Schmidt Procedures Procedure Status Date Provider(s) Routine venipuncture Completed 09/19/16 Ct abd & pelvis w/o contrast Completed 09/19/16 Comprehen metabolic panel Completed 09/19/16 Urinalysis auto w/o scope Completed 09/19/16 Assay of lactic acid Completed 09/19/16 Assay of lipase Completed 09/19/16 Complete cbc w/auto diff wbc Completed 09/19/16 Hydrate iv infusion add-on Completed 09/19/16 Hydrate iv infusion add-on Completed 09/19/16 Ther/proph/diag inj iv push Completed 09/19/16 Tx/pro/dx inj new drug addon Completed 09/19/16 Tx/pro/dx inj same drug lens cementer Completed 09/19/16 Emergency dept visit Completed 09/19/16 293594"INJECTION, HYDROMORPHONE, UP TO 4 MG" Completed 09/19/16 697833"INJECTION, HYDROMORPHONE, UP TO 4 MG" Completed 09/19/16 306200"INJECTION, ONDANSETRON HYDROCHLORIDE, PER 1 MG" Completed 09/19/16 [id number]"INFUSION, NORMAL SALINE SOLUTION , 1000 CC" Completed 09/19/16 Exploratory laparotomy Completed 09/24/16 MANDY SCHMIDT MD Encounters Encounter Location Arrival/Admit Date Discharge/Depart Date Attending Provider Discharged Inpatient [facility] 09/22/16 11:31am 10/03/16 4:50pm XENIA WALETRS MD Departed Emergency Room [facility] 09/19/16 2:17pm 09/19/16 5: 55pm MARIANNE PAYAN MD Discharged Inpatient [facility] 07/03/16 10:26pm 07/07/16 7:08pm EMIR MEDEROS MD
--- OUTSIDE RECORDS SUMMARY | 2016-11-05 05:51 | XMS REPORT | Referral Summary ---
Author Author [facility] Organization [facility] Address Unknown Phone Unavailable Care Team Providers Care Forms Builder Name Role Phone Leandro Champagne Primary Care Physician [phone] Encounter VC Date(s): 09/02/16 - 09/02/16 [facility] [address] [place] [address] Discharge Disposition: 01-Home or Self Care Attending Physician: Ethan Sultana DO Admitting Physician: Ethan Sultana DO Vital Signs No data available for this section Problem List Condition Effective Dates Status Health Status Informant Acute Resolved pain(Confirmed) At risk for Resolved infection(Confirmed) 1 Hypertension(Confirm Active patient ed) Depression(Confirmed Active patient ) Obesity(Confirmed) Active patient 1Problem added automatically by system based on initiation of At Risk for Infection in Nutrition Plan of Care Allergies, Adverse Reactions, Alerts No Known Allergies Medications Communication Patient transfered from another hospital. Refer to records for current med list and last doses. Patient states they do not take any medications at home, 0 Refill(s) Start Date: 07/07/16 Status: Ordered Results No data available for this section Immunizations No data available for this section Procedures No data available for this section Social History Social History Type Response Smoking Status Current every day smoker Assessment and Plan No data available for this section
--- OUTSIDE RECORDS SUMMARY | 2016-11-05 05:51 | XMS REPORT | Referral Summary ---
Author Author [facility] Organization [facility] Address Unknown Phone Unavailable Care Team Providers Care Mathematical Engineer Name Role Phone No PCP, Pt States Primary Care Physician [phone] Encounter VC Date(s): 07/07/16 - 07/09/16 [facility] [address] [place] [address] Discharge Diagnosis: Diverticulitis Discharge Disposition: 01-Home or Self Care Attending Physician: Seth Orozco MD Admitting Physician: Seth Orozco MD Vital Signs Most recent to 1 oldest [Reference Range]: Temperature Oral 37.2 degC [35.8-37.3 degC] (07/09/16 3:53 PM) Peripheral Pulse 89 bpm Rate [60-100 bpm] (07/08/16 8:00 PM) Heart Rate Monitored 82 bpm [60-100 bpm] (07/09/16 3:53 PM) Respiratory Rate 20 br/min [14-20 br/min] (07/09/16 3:53 PM) Blood Pressure 126/81 mmHg [90-140/60-90 mmHg] (07/09/16 3:53 PM) Mean Arterial 121 mmHg Pressure, Cuff (07/08/16 6:55 AM) SpO2 95 % (07/09/16 3:53 PM) Problem List Condition Effective Dates Status Health Status Informant Acute Resolved pain(Confirmed) At risk for Resolved infection(Confirmed) 1 Hypertension(Confirm Active patient ed) Depression(Confirmed Active patient ) Obesity(Confirmed) Active patient 1Problem added automatically by system based on initiation of At Risk for Infection in Nutrition Plan of Care Allergies, Adverse Reactions, Alerts No Known Allergies Medications Ceftin 500 mg oral tablet 500 mg 1 tabs, Oral, BID, # 28 tabs, 0 Refill(s) Start Date: 07/09/16 Stop Date: 07/23/16 Status: Ordered Communication Patient transfered from another hospital. Refer to records for current med list and last doses. Patient states they do not take any medications at home, 0 Refill(s) Start Date: 07/07/16 Status: Ordered Flagyl 500 mg oral tablet 500 mg 1 tabs, Oral, BID, # 28 tabs, 0 Refill(s) Start Date: 07/09/16 Stop Date: 07/23/16 Status: Ordered oxyCODONE-acetaminophen 7.5 mg-325 mg oral tablet 2 tabs, Oral, q4hr, Pain Moderate (4-6), # 20 tabs, 0 Refill(s), other reason ( Rx) Start Date: 07/09/16 Stop Date: 08/08/16 Status: Ordered Results Hematology Most recent to 1 oldest [Reference Range]: WBC [4.8-10.8 9.2 10*3/uL 10*3/uL] (07/09/16 1:53 PM) RBC [4.60-6.20] 4.99 (07/09/16 1:53 PM) Hgb [14.0-18.0 15.1 gm/dL gm/dL] (07/09/16 1:53 PM) Hct [42.0-52.0 %] 44.0 % (07/09/16 1:53 PM) MCV [82.0-99.0 fL] 88.2 fL (07/09/16 1:53 PM) MCH [27.0-32.0 pg] 30.3 pg (07/09/16 1:53 PM) MCHC [32.0-36.0 34.3 gm/dL gm/dL] (07/09/16 1:53 PM) RDW [11.5-14.5 %] 13.1 % (07/09/16 1:53 PM) Platelet [150-400 274 10*3/uL 10*3/uL] (07/09/16 1:53 PM) MPV [9.4-12.3 fL] 10.3 fL (07/09/16 1:53 PM) Immature 0.6 % Granulocytes (07/08/16 5:45 AM) [0.0-1.0 %] Neutrophils [51-75 61 % %] (07/08/16 5:45 AM) Lymphocytes [20-46 24 % %] (07/08/16 5:45 AM) Monocytes [4-11 %] 11 % (07/08/16 5:45 AM) Eosinophils [0-4 %] 2 % (07/08/16 5:45 AM) Basophils [0-2 %] 1 % (07/08/16 5:45 AM) Neutro Absolute 6.18 10*3 [1.90-7.00 10*3] (07/08/16 5:45 AM) Lymph Absolute 2.41 10*3 [0.80-3.30 10*3] (07/08/16 5:45 AM) [place] Absolute 1.11 10*3 [0.30-1.00 10*3] *HI* (07/08/16 5:45 AM) Eos Absolute 0.22 10*3 [0.00-0.50 10*3] (07/08/16 5:45 AM) Baso Absolute 0.08 10*3 [0.00-0.20 10*3] (07/08/16 5:45 AM) Nucleated RBC 0.0 /100 WBC Automated [0 /100 (07/08/16 5:45 AM) WBC] Chemistry Most recent to 1 oldest [Reference Range]: Sodium Lvl [136-144 136 mEq/L mEq/L] (07/08/16 5:45 AM) Potassium Lvl 3.7 mEq/L [3.6-5.1 mEq/L] (07/08/16 5:45 AM) Chloride [99-109 101 mEq/L mEq/L] (07/08/16 5:45 AM) CO2 [22-32 mEq/L] 26 mEq/L (07/08/16 5:45 AM) AGAP [3-20] 9 (07/08/16 5:45 AM) BUN [4-20 mg/dL] 4 mg/dL (07/08/16 5:45 AM) Glucose Lvl [70-100 102 mg/dL mg/dL] *HI* (07/08/16 5:45 AM) Creatinine Lvl 0.85 mg/dL [0.64-1.27 mg/dL] (07/08/16 5:45 AM) eGFR [>60] >60 1 (07/08/16 5:45 AM) Calcium Lvl 9.0 mg/dL [8.6-10.0 mg/dL] (07/08/16 5:45 AM) 1Result Comment: Multiply eGFR results by 1.21 for race. Immunizations No data available for this section Procedures No data available for this section Social History Social History Type Response Smoking Status Current every day smoker Assessment and Plan No data available for this section
--- OUTSIDE RECORDS SUMMARY | 2016-11-05 05:51 | XMS REPORT ---
Author Author Laurent Champagne Organization [facility] Address [address] [place] [address] Care Team Providers Care Offender Employment Specialist Name Role Phone DaphneLaurent quevedo Unavailable [phone] PROBLEMS Type Condition ICD9-CM Code IIS80-CV Code Onset Dates Condition Status SNOMED Code Problem Diverticulosis of intestine, part unspecified, without perforation or abscess without bleeding K57.90 Active 58717150 Problem Essential (primary) hypertension I10 Active 30262438 Assessment Diverticulosis of intestine, part unspecified, without perforation or abscess without bleeding K57.90 Jul, Active 99276085 ALLERGIES Substance Reaction Event Type Date Status N.K.D.A. Unknown Non Drug Allergy Jul, Unknown SOCIAL HISTORY No smoking Hx information available PLAN OF CARE VITAL SIGNS Weight 198.2 lbs 2016-07-23 Height 69 in 2016-07-23 Temperature 98.4 degrees Fahrenheit 2016-07-23 BMI 29.27 kg/m2 2016-07-23 Heart Rate 77 /min 2016-07-23 Respiratory Rate 16 /min 2016-07-23 Oximetry 97 % 2016-07-23 Blood pressure systolic 132 mm Hg 2016-07-23 Blood pressure diastolic 88 mm Hg 2016-07-23 MEDICATIONS Medication Instructions Dosage Frequency Start Date End Date Duration Status Lisinopril 10 MG Orally Once a day 1 tablet 24h 30 days Active RESULTS No Results PROCEDURES Procedure Date Ordered Related Diagnosis Body Site [facility] visit Established Patient Jul 23, 2016 [facility] visit Annual Exam Jul 23, 2016 Preventive Care New Pt. Age 40-64 Jul 23, 2016 IMMUNIZATIONS No Known Immunizations
[2016-11-05 06:36] LABS: ANION GAP 13 MEQ/L (5-15); BUN/CREATININE RATIO 11 RATIO (6-26); CALCIUM 10.4 MG/DL (8.4-10.2); CHLORIDE 103 MEQ/L (98-107); CO2 - CARBON DIOXIDE 26 MEQ/L (22-30); CREATININE 0.7 MG/DL (0.8-1.5); GLOMERULAR FILTRATION RATE 124; GLUCOSE 129 MG/DL (75-110); POTASSIUM 4.5 MEQ/L (3.6-5); SODIUM 142 MEQ/L (134-144)
--- NOTE | 2016-11-05 06:46 | ANESPREOP ---
Anesthesia Record Date and Time DATE: 11/05/16 TIME: 06:32 Proposed Surgical Procedure OPEN SIGMOID RESECTION WITH COLOSTOMY/CATH INSERTION NPO since: 19011/04/16 Allergies: Coded Allergies: No Known Allergies (Unverified , 11/05/16) Ht/Wt/BMI Height: 5 ' 9.00 " Weight: 81.300 kg BMI: 26.5 kg/m2 Vital Signs Date Time Temp Pulse Resp B/P Pulse Ox O2 Delivery O2 Flow Rate FiO2 11/05/16 06:00 98.5 115 20 127/73 99 Room Air Medications Inpatient Medications Current Medications Medications (Trade) Dose Ordered Sig/Emily Start Time Stop Time Status Last Admin Dose Admin Lactated Ringer's (Lactated Ringers) 1,000 ml @ 150 mls/hr Q6H40M 11/05/16 07:00 Amlodipine Besylate (Amlodipine Besylate) 5 Mg Tablet, 5 MG PO DAILY for elevated blood pressure Last Taken: on 11/05/16 0415 Aspirin (Aspirin) 81 Mg Tab.chew, 81 MG PO DAILY, (Reported) Last Taken: on 10/27/16 Ertapenem Sodium (Invanz) 1 G/Vial Vial, 1 G IV DAILY Last Taken: on 11/04/16 0800 Fluconazole (Fluconazole) 200 Mg Tablet, 2 TAB PO DAILY Last Taken: on 11/04/16 1100 Hydrocodone/Acetaminophen (Hydrocodon- Acetaminoph 7.5-325) 7.5-325 Tablet, 1 TAB PO Q6H PRN for pain Do not drive or operate heavy machinery if taking this medication Last Taken: on 11/03/16 Lisinopril (Lisinopril) 20 Mg Tablet, 20 MG PO DAILY, (Reported) Last Taken: on 11/04/16 1100 Polyethylene Glycol 3350 (Healthylax) 17 Gm Powd.pack, 17 G PO DAILY Last Taken: on 11/04/16 Pravastatin Sodium (Pravastatin Sodium) 20 Mg Tablet, 20 MG PO DAILY, (Reported) Last Taken: on 11/04/16 1100 Currently on Beta Evelyn: No Medical/Surgical History Anesthesia PMH: Reports: *Diabetes (NIDDM), *Hypertension, Anxiety, Arthritis ( BACK), Hyperlipidemia, Reflux, Sleep Apnea (does not use CPAP) Smoking Status: Current every day smoker Has pt. smoked today?: Yes # of Packs per Day: 1/2 # of Years: 23 Use Chewing Tobacco?: No Second Hand Exposure: No Substance Use Type: does not use Alcohol Intake: a few times a week Last Drink: days (ago) (14) Past Surgical History Orthopedic Surgeries: Yes - LEFT SHOULDER; BILATERAL KNEES; LEFT CARPAL TUNNEL; LEFT ELBOW NERVE Abdominal Surgeries: Yes - APPENDECTOMY; SCAR TISSUE REMOVAL; HEMORROIDECTOMY, COLONOSCOPY Genitourinary Surgeries: Yes - Lithotripsy Cardiac Surgeries: No Endocrine Surgeries: No Reproductive Surgeries: No Neurological Surgeries: No Ear Surgeries: Yes - BILATERAL EAR TUBES X 10; RECONSTRUCTION RIGHT EAR Nose Surgeries: No Throat Surgeries: Yes - TONSILS Other Surgeries: Yes - LUMBAR FUSION Anesthesia Adverse Reactions: FOUND none Family Hx of Anesthesia Advers: none Hx of Motion Sickness: Yes Pertinent Findings EKG Rhythm: Sinus Rhythm Physical Exam Respiratory: Lungs clear Cardiovascular: FOUND Regular rate, rhythm, FOUND No murmur Airway Assessment Mallampati Score: II TMD: 3 Fingerbreadths Neck Extension: Good Teeth: Poor Dentation Overall Assessment: No Airway Concerns ASA: 3 Plan Anesthesia Plan: GETA Discussion Discussed risks/options/alternatives of anesthesia and questions answered. Patient consents. Nursing pain assessment noted. Attestation Statement Prior to the delivery of any anesthetic medication, I examined the patient, developed the plan, obtained the patient's consent and discussed the risk and benefits of the procedure with the patient/guardian. ISABELA NUNEZ TEXTILE MACHINERY SALES REPRESENTATIVE STUDENT Nov 05, 2016 06:35
[2016-11-05] MEDS ORDERED: FENTANYL 250mcg/5ml INJECTION ONE ×3 (06:52→10:34)
[2016-11-05] MEDS ORDERED: LIDOCAINE 1% (10mg/ml) 2ml SDV INJ ONE (07:00)
[2016-11-05] MEDS ORDERED: MIDAZOLAM 2mg/2ml INJECTION IV ONE (07:15)
[2016-11-05] MEDS ORDERED: SCOPOLAMINE 1.5 MG PATCH TD ONE (07:15)
[2016-11-05] MEDS ORDERED: FAMOTIDINE 20mg in NS 50ml IV ONE (07:15)
[2016-11-05] MEDS: LR 1,000 ML IV SCH ×2 (07:17→19:21)
[2016-11-05] MEDS ORDERED: KETAMINE 500mg/10ml INJECTION ONE (07:20)
[2016-11-05] MEDS ORDERED: DEXAMETHASONE 4mg/ml - 1ml INJECTION ONE (07:21)
[2016-11-05] MEDS ORDERED: PROPOFOL 200mg 40 ML IV ONE (07:23)
[2016-11-05] MEDS ORDERED: ERTAPENEM 1 G in NORMAL SALINE 100 ML IV ONE (08:00)
[2016-11-05] MEDS ORDERED: METOCLOPRAMIDE 10mg/2ml INJECTION ONE (08:04)
[2016-11-05] MEDS ORDERED: ONDANSETRON 4mg/2ml INJECTION ONE ×2 (08:04→12:29)
[2016-11-05] MEDS ORDERED: HYDROMORPHONE 2mg/ml INJECTION ONE ×2 (08:29→12:27)
[2016-11-05] MEDS ORDERED: ROCURONIUM 50mg/5ml INJECTION IV ONE ×2 (08:34→10:30)
[2016-11-05] MEDS ORDERED: LABETALOL 20mg/4ml INJECTION IV ONE (09:03)
[2016-11-05] MEDS ORDERED: ACETAMINOPHEN 100 ML IV ONE (09:15)
--- NOTE | 2016-11-05 13:06 | OPNOTEF ---
DATE OF OPERATION 11/05/2016 PREOPERATIVE DIAGNOSIS Sigmoid diverticulitis. POSTOPERATIVE DIAGNOSIS Sigmoid diverticulitis, with inflammation of the bladder and urethral stricture. PROCEDURE PERFORMED Cystoscopy and bilateral ureteral catheter placement. SURGEON Rajat Roberson MD ANESTHESIA General endotracheal INDICATIONS Mr. Barragan has a persistent and resilient sigmoid diverticulitis and is undergoing a sigmoid resection by Dr. Schmidt. I was asked to come in and insert ureteral catheters as a safety measure to protect the ureters. DESCRIPTION OF PROCEDURE Patient was taken to the operating room and was under general endotracheal anesthesia in the lithotomy position with genitalia prepped and draped in the usual fashion for cystoscopic procedure when I entered the operating room theatre. A #23 Khmer rigid cystoscope was inserted into the bladder under direct vision. There was mild stricture in the bulbomembranous/membranous urethra. Bladder showed trabeculation with inflammation in the posterior wall near the dome. It has the appearance of edema and induration of typical inflammatory patch. It is substantial size. Ureteral orifices were normal in location and contour bilaterally. No bladder tumor, foreign body or stone was noted. A 0.035 gauge guidewire was inserted into the left ureteral orifice and advanced proximally. We then fed over the guidewire a #6 Khmer IRIS lighted ureteral catheter and advanced to approximately 22 to 24 cm. Next, a guidewire was inserted into the right ureteral orifice and over this guidewire, another IRIS lighted ureteral catheter was placed over the guidewire into the right ureter and advanced approximately 22 to 24 cm. Guidewire was removed and cystoscope was also removed over the catheters. Through the ureteral catheter, a light source catheter was placed in both catheters. Appropriate attachment was placed. A #16 Khmer Whatley catheter was inserted and catheter and the ureteral catheters and Whatley catheter were anchored together with silk ligatures. Whatley bag and ureteral drainage bags were attached and the case was turned over to Dr. Schmidt for exploration and sigmoid colectomy. [id number]
[2016-11-05] MEDS ORDERED: SEVOFLURANE 250 ML LIQUID IH ONE (13:58)
[2016-11-05] MEDS ORDERED: SUGAMMADEX 200 MG/2 ML INJECTION IV ONE (14:00)
[2016-11-05] MEDS ORDERED: ONDANSETRON 4mg/2ml INJECTION IV PRN ×4 (15:00→18:00)
[2016-11-05] MEDS ORDERED: HYDROMORPHONE 2mg/ml INJECTION IV PRN (15:00)
[2016-11-05] MEDS ORDERED: NORMAL SALINE EPI ONE (15:00)
[2016-11-05] MEDS ORDERED: ROPIVACAINE EPI ONE (15:00)
[2016-11-05] MEDS ORDERED: SUFENTANIL EPI ONE (15:00)
[2016-11-05] MEDS ORDERED: NALOXONE 0.4mg/ml INJECTION IV PRN ×2 (15:00→18:00)
[2016-11-05] MEDS ORDERED: DiphenhydrAMINE 50 MG/ML INJECTION IV PRN ×2 (15:00→18:00)
--- NOTE | 2016-11-05 15:30 | NUR ---
PACU EPIDURAL: LORENA LAUGHLIN SUBSTATION OPERATOR AND ISABELA NUNEZ, SUBSTATION OPERATOR STUDENT IN PACU FOR EPIDURAL. CONSENT OBTAINED FROM FAMILY FROM PERIANESTHESIA STAFF. WILL CONTINUE TO MONITOR.
[2016-11-05] MEDS ORDERED: METOCLOPRAMIDE 10mg/2ml INJECTION IV PRN (16:00)
--- NOTE | 2016-11-05 16:30 | NUR ---
PACU STATUS LORENA LAUGHLIN NOTIFIED VIA PHONE OF PATIENT STATUS. PATIENT RESTS QUIETLY UNLESS AWAKENED, WHEN HE C/O PAIN AT 8/10 AND CONTINUED NAUSEA. MEDICATIONS GIVEN, SEE EMAR. EPIDURAL IN PLACE. OK GIVEN TO SEND PATIENT TO FLOOR GIVEN BY LORENA LAUGHLIN PSYCHOLOGIST PERSONNEL.
--- NOTE | 2016-11-05 16:31 | GSPOSTPROC ---
Immediate Operative Note DATE: 11/05/16 TIME: 16:25 Postop Diagnosis: * Intraabdominal diverticular abscess * Intraabdominal adhesions Surgical Procedure: Other (Open sigmoid resection (Simental's Procedure)) Surgeon: Roxana Assisting Surgeon: Antoni ASA: 3 MANDY BRYAN MD Nov 05, 2016 16:30
--- NOTE | 2016-11-05 16:45 | NUR ---
ARRIVAL TO FLOOR PT ARRIVED TO THE FLOOR AT THIS TIME, VIA CART. PT WAS TRANSFERRED TO THE BED WITH ASSIST X3 AND SLIDING BOARD. PT IS REPORTING SOME NAUSEA AT THIS TIME, UNABLE TO ADMINISTER ANY NAUSEA MEDICATION AT THIS TIME, DUE TO MAXIMUM DOSAGE. WILL CONTINUE TO MONITOR. FAMILY PRESENT IN ROOM.
[2016-11-05] MEDS ORDERED: ROPIVACAINE EPI PRN (18:00)
[2016-11-05] MEDS ORDERED: SUFENTANIL EPI PRN (18:00)
[2016-11-05] MEDS ORDERED: NORMAL SALINE EPI PRN (18:00)
[2016-11-05] MEDS: HYDROMORPHONE 2mg/ml INJECTION IV PRN ×3 (18:49→23:34)
--- NOTE | 2016-11-05 19:30 | NUR ---
ANIMAL CARE TAKER INSTRUCTIONS DAWSON Klein stated to allow 12 hours prior to discontinuing epidural and lovenox injection. Also to not give Lovenox injection 4 hours post removal. Will notify day shift in the a.m.
--- NOTE | 2016-11-05 19:35 | NUR ---
PROGRESS NOTE PT IS ALERT AND ORIENTED X3. VITAL SIGNS STABLE ON RA. PT HAS ICE CHIPS AT BEDSIDE. LR RUNNING INTO HIS LEFT UPPER ARM MIDLINE AT 150CC/HR. PT WAS GIVEN A PRN DOSE OF DILAUDID 0.5MG THROUGH HIS 18G IN HIS RIGHT AC PRIOR TO SHIFT CHANGE. PT RATING PAIN A 10/10. PT ASKING FOR MORE PAIN MEDICATIONS THIS RN WAS ADMINISTERING THE DILAUDID. DRESSING TO ABDOMEN C/D/I. PT WAS TRANSFERRED TO THE FLOOR WITH AN EPIDURAL IN PLACE. YUKI DRAIN FLUID IS SANGUINEOUS WITH MIN-MODERATE DRAINAGE. GRAJEDA CATHETER IN PLACE WITH VILLA URINE DRAINING. PT IS RESTING IN BED, CALL LIGHT WITHIN REACH, PAIN MANAGEMENT NOTED GOING TO BE DIFFICULT TO CONTROL PER PT HX WITH OPIOID USE. NO OTHER CONCERNS NOTED AT THIS TIME.
--- NOTE | 2016-11-05 19:42 | ANESPO ---
Post-Op Note Date 11/05/16 Time: 19:20 Status Pt Participated in Evaluation: Pt participated in person Vital Signs Date Time Temp Pulse Resp B/P Pulse Ox O2 Delivery O2 Flow Rate FiO2 11/05/16 18:50 110 18 139/81 93 Room Air 11/05/16 16:50 98.4 11/05/16 16:25 2.00 Respiratory Function: Airway patent, Regular respirations Cardiovascular Function: Regular pulse Mental Status: Alert/oriented Pain Level Intensity: 8 (Epidural infusing, seems to be comfortable while laying in bed. But complains of soreness to abdomen.) Unable to Assess Pain Due To: Pt Sleeping Hydration: IV infusing Complications during Recovery None apparent Post-Anesthesia Notes On evaluation patient seems to be comfortable and doing well. Does complain of back pain and soreness to abdomen. Follow-Up Instructions Instructions Per Surgeon LORENA LAUGHLIN CRNA Nov 05, 2016 19:42
[2016-11-05] MEDS: KETOROLAC 30mg/ml INJECTION IV PRN (20:46)
[2016-11-05] MEDS: ONDANSETRON 4mg/2ml INJECTION IV PRN (23:40)
[2016-11-06] VITALS (8 sets, daily range): BP systolic 107–133; BP diastolic 63–90; PULSE 81–110; RESP 14–18; TEMP 97.9–98.5; O2SAT 92–95
[2016-11-06] MEDS: LR 1,000 ML IV SCH ×5 (01:27→23:15)
[2016-11-06] MEDS: HYDROMORPHONE 2mg/ml INJECTION IV PRN ×6 (02:11→21:23)
[2016-11-06] MEDS: KETOROLAC 30mg/ml INJECTION IV PRN ×2 (04:37→15:30)
--- NOTE | 2016-11-06 05:05 | NUR ---
Progress Pt refuses to ambulate in the room. Pt did sit on the side of the bed for a few seconds, refused to go any further, stating at he doesn't understand how they can expect someone to get up after major surgery. Will continue to encourage movement.
--- NOTE | 2016-11-06 05:06 | NUR ---
SHIFT SUMMARY PT ALERT AND ORIENTED X3, VITAL SIGNS STABLE ON ROOM AIR. DENIES C/P,V. NAUSEA EARLIER IN THE SHIFT BUT SUBSIDED WITH MEDICATION. PT CONSISTENTLY RATES PAIN A 8 TO 9/10 WITH PRN PAIN MEDICATION. PT REFUSES TO AMBULATE ON SHIFT. WILL CONTINUE TO MONITOR.
[2016-11-06] MEDS: NORMAL SALINE EPI PRN ×2 (05:27→19:48)
[2016-11-06] MEDS: SUFENTANIL EPI PRN ×2 (05:27→19:48)
[2016-11-06] MEDS: ROPIVACAINE EPI PRN ×2 (05:27→19:48)
[2016-11-06 06:26] LABS: BASOPHILS % (AUTO) 0.2 % (0-2); EOSINOPHILS % (AUTO) 0.1 % (0-4); HCT - HEMATOCRIT 35.6 % (41-53); HGB - HEMOGLOBIN 11.6 GM/DL (13.5-17.5); IMMATURE GRANULOCYTE # (AUTO) 0.03 T/MM3 (0.00-0.03); IMMATURE GRANULOCYTE % (AUTO) 0.2 % (0.0-0.5); LYMPHOCYTES # (AUTO) 1.6 T/MM3 (1-4.8); LYMPHOCYTES % (AUTO) 12.7 % (23-45); MEAN CORPUSCULAR HGB 28.7 UUG (26-34); MEAN CORPUSCULAR HGB CONC(MCHC 32.6 GM/DL (31-37); MEAN CORPUSCULAR VOLUME 88.1 UM3 (80-100); MEAN PLATELET VOLUME 10.3 UM3 (9.4-12.4); MONOCYTES # (AUTO) 1.2 T/MM3 (0-0.8); MONOCYTES % (AUTO) 9.7 % (0-9.0); NEUTROPHILS #(AUTO)-ABSOLUTE 9.9 T/MM3 (1.8-7.7); NEUTROPHILS % (AUTO) 77.1 % (33-66); RED BLOOD COUNT 4.04 M/MM3 (4.50-5.90); WBC - WHITE BLOOD COUNT 12.8 T/MM3 (4.5-11.0)
[2016-11-06 06:34] LABS: ANION GAP 10 MEQ/L (5-15); BUN/CREATININE RATIO 22 RATIO (6-26); CHLORIDE 104 MEQ/L (98-107); CO2 - CARBON DIOXIDE 27 MEQ/L (22-30); CREATININE 0.6 MG/DL (0.8-1.5); GLOMERULAR FILTRATION RATE 148; GLUCOSE 133 MG/DL (75-110); POTASSIUM 4.4 MEQ/L (3.6-5); SODIUM 141 MEQ/L (134-144)
[2016-11-06] MEDS: ONDANSETRON 4mg/2ml INJECTION IV PRN ×3 (06:39→21:29)
--- NOTE | 2016-11-06 06:57 | ANESPO ---
Post-Op Note Date 11/06/16 Time: 06:35 Status Pt Participated in Evaluation: Pt participated in person Vital Signs Date Time Temp Pulse Resp B/P Pulse Ox O2 Delivery O2 Flow Rate FiO2 11/06/16 06:27 20 11/06/16 04:52 98.3 97 133/84 95 Room Air 11/05/16 20:03 2.00 Respiratory Function: Airway patent, Regular respirations Cardiovascular Function: Regular pulse Mental Status: Alert/oriented Pain Level Intensity: 8 Unable to Assess Pain Due To: Pt Sleeping Hydration: IV infusing Complications during Recovery None apparent Post-Anesthesia Notes activity encourage. Follow-Up Instructions Instructions Per Surgeon LORENA LAUGHLIN CRNA Nov 06, 2016 06:57
[2016-11-06] MEDS ORDERED: SCOPOLAMINE 1.5 MG PATCH TD ONE (07:15)
[2016-11-06] MEDS ORDERED: ENOXAPARIN 40 MG/0.4 ML INJECTION SQ SCH ×2 (09:00→21:00)
[2016-11-06] MEDS ORDERED: ERTAPENEM 1 G INJECTION IV SCH (09:00)
[2016-11-06] MEDS: LISINOPRIL 20 MG TABLET PO SCH (09:03)
[2016-11-06] MEDS: AMLODIPINE 5 MG TABLET PO SCH (09:03)
[2016-11-06] MEDS: FLUCONAZOLE 100 MG TABLET PO SCH (09:04)
[2016-11-06] MEDS: ERTAPENEM 1 G in NS 100 ML IV SCH (09:05)
--- NOTE | 2016-11-06 09:57 | NUR ---
JESSIE CM IN TO VISIT WITH PT. HE IS ALERT AND ORIENTED. HE DOES NOT ANTICIPATE NEEDING HHS. HE PLANS TO RETURN HOME WITH HELP FROM [facility]. HE IS MADE AWARE THAT WOUND TEAM WILL BE COMING TO DO OSTOMY TEACHING WITH PT. Addendum: 11/06/16 at 0958 by BLAYNE JOHNSON RN Amended: Links added.
[2016-11-06] MEDS: ENOXAPARIN 30 MG/0.3 ML INJECTION SQ SCH ×2 (11:45→21:31)
--- NOTE | 2016-11-06 13:51 | OPNOTEF ---
DATE OF SURGERY 11/05/2016 SURGEON Harjeet Schmidt MD SCRUM PRODUCT OWNER Dr. Corrales PREOPERATIVE DIAGNOSIS Intraabdominal diverticular abscess. POSTOPERATIVE DIAGNOSES 1. Intraabdominal diverticular abscess. 2. Extensive intraabdominal adhesions. 3. Serosal injury of the small bowel incidental to the procedure due to the significant inflammatory process in the pelvis and proximity to the abscess cavity. PROCEDURE 1. Open sigmoid colon resection with end colostomy formation (Arnold's procedure). 2. Lysis of adhesions x 167 minutes. 3. Segmental small bowel resection. 4. Open mobilization of the splenic flexure. ANESTHESIA General. ASA CLASSIFICATION 3. INDICATIONS The patient is a 41-year-old male who has been dealing with a diverticular abscess since June of 2016. He initially had a lengthy treatment course with antibiotics but his abscess never fully resolved. On 09/24/2016 he had laparoscopy converted to laparotomy with drainage of his abscess on the posterior-superior aspect of the bladder. Despite operative drainage and culture directed antibiotic treatment, his abscess had enlarged and he continued to have an elevated white count. It was recommended that he undergo a Arnold's procedure for treatment of the underlying problem. FINDINGS There was continued inflammation of the sigmoid colon and a dense inflammatory process between the sigmoid colon and the dome of the bladder. An ongoing pocket of purulent material was encountered during dissection in the pelvis and cultures were taken. There were extensive intraabdominal adhesions involving the small bowel, omentum, and mesentery of the small bowel. The adhesions led to multiple kinks in the bowel that appeared as if there would be a high likelihood of future small bowel obstructions. There was an area of small bowel that had been densely adherent to the inflammatory process in the pelvis. During adhesiolysis, a portion of the bowel had a 5 cm x 1 cm segment that the serosa was denuded during dissection. This was not unexpected given the difficult dissection caused by the significant inflammation in the region. Mobilization of the splenic flexure was required to gain adequate length for colostomy formation in the left lower quadrant. DESCRIPTION OF PROCEDURE After informed consent was obtained the patient was taken to the operating room and placed in low lithotomy position. He had already had cystoscopy performed by Dr. Roberson with placement of ureteral lighted stents. The patient's abdomen was then prepped and draped in the usual sterile fashion. His prior drain had been removed. The patient's previous lower midline incision was reopened using a 10- blade scalpel. Electrocautery was used to dissect down through the subcutaneous tissue to the level of the fascia. Cautery was used to divide the fascia and the prior PDS suture was excised with suture scissors and a hemostat. The peritoneal cavity was entered at the superior aspect of the incision. Blunt dissection and electrocautery were used to take down some omental adhesions. As small bowel adhesions were encountered, the dissection was changed over to Metzenbaum scissors. Eventually the prior incision was able to be opened along its previous length and for a few centimeters superior to the umbilicus. There were too many pelvic adhesions that remained to place a wound protector prior to the pelvic dissection. Tedious blunt dissection was performed in the right pelvis to free up the small bowel adhesions and adhesions of the sigmoid colon to the pelvic sidewall. Most of the pelvic dissection was performed bluntly given the dense inflammation. The IRIS lighted stents were visualized with the Curasight laparoscopy equipment and the Advanced Imaging Modality. The stents were also able to be palpated. This aided greatly in dissection in sparing the ureters given the dense inflammatory tissue within the pelvis. When adequate mobilization of the right side of the colon had been completed, dissection was turned along the left lower quadrant and left pelvic brim. Again predominately blunt dissection was performed after reflection of the sigmoid colon had been achieved with cautery. The lighted stent was again utilized to identify the location of the ureter and spare it from dissection. With the sigmoid colon mobilized on both the right and the left, the anterior dissection between the bladder and the sigmoid colon was performed. Given the density and the close adherence to the bladder, blunt dissection was performed. The abscess cavity was broken into and cultures were obtained and were sent to the lab. Further dissection was performed until the sigmoid colon was able to be dissected free from the bladder down to the peritoneal reflection anteriorly. Further mobilization of the distal descending colon was performed so that a site of division of the bowel at the junction of the descending colon and sigmoid colon could be selected. A normal-appearing segment of bowel was divided after a window was made in the mesentery. The bowel was divided with a linear cutting stapler. The mesentery of the sigmoid colon and proximal rectum was divided with clamps and 0 Vicryl ties. When the dissection of the mesentery had been continued down to the distal sigmoid colon and beyond the inflamed segment, the distal bowel was divided at the level of the proximal rectum with a contour stapler. The corners of the staple line were marked with 6-inch long 0 Prolene sutures. One-hundred and fifteen minutes of adhesiolysis had been performed at the start of the case to free up the tissue beneath the prior incision and get down to the pelvis along with separation of the distal sigmoid colon from the surrounding structures in the pelvis. This 115 minutes did not include time for division of the bowel and mesentery. After the sigmoid colon had been removed, attention was turned to division of the adhesions between the small bowel loops and the mesentery and omentum. An additional 52 minutes of time was spent from 11:47 to 12:39. Total time spent was 167 minutes of adhesiolysis. Once adhesiolysis was complete, the small bowel was inspected from the terminal ileum to the ligament of Treitz and the area of denuded serosa was identified. A segmental small bowel resection was performed given the compromised nature of the integrity of the bowel wall caused by the inflammation. Windows were made in the mesentery just proximal and distal to the compromised segment and the bowel was divided with a reload of the linear cutting stapler. The mesentery was divided between clamps and the edge of the mesentery was ligated with 0 Vicryl ties. The antimesenteric corners of the staple line were cut with scissors and another reload of the linear cutting stapler was inserted with one limb of the stapler in each bowel lumen. The stapler was fired on the antimesenteric portion to create the common channel of the anastomosis. The ends of the staple line at the common enterotomy were then offset and the common enterotomy was closed with a TX60B stapler. The anastomosis was palpated and was found to be widely patent. Two 3 -0 Vicryl stitches were placed at the crotch of the anastomosis to prevent unzippering of the staple line. The mesenteric defect was closed with a running 3-0 Vicryl stitch. The small bowel anastomosis was placed in the right lower quadrant. The pelvis was irrigated and suctioned free of fluid. The descending colon was then inspected and it was noted that there was not adequate length to bring up the end of the bowel for colostomy formation. Additional mobilization of the descending colon was performed along the white line of Toldt, but this still did not allow for adequate exposure. The wound protector, which had been placed once adequate division of the pelvic adhesions had been performed, was removed and the incision was extended superiorly. The wound protector was replaced and the splenic flexure was mobilized using cautery. A window was made into the lesser sac and the gastrocolic ligament was divided with cautery. The white line of Toldt dissection was also extended up to the splenic flexure. Once the splenic flexure was fully mobilized, there was adequate length to bring the end of the bowel to the pelvis and also up through the abdominal wall. The entire surgical team changed gowns and gloves. The abdomen was redraped and new sterile instruments were used for creation of the colostomy site and wound closure. A small skin hughes was excised from the left lower quadrant overlying the lateral rectus sheath. An incision was made down through the subcutaneous fat using cautery. The anterior rectus sheath was divided with cautery to a width of two fingerbreadths. The rectus muscle fibers were and the posterior rectus sheath was also divided to a width of two fingers. Once adequate space had been cleared, attempts were made to bring the end of the colon up through the defect but the colon was difficult to pass due to an epiploic appendage. This was removed. The colon was able to be brought up through the abdominal wall and sit just above the level of the skin without tension. A 19-Czech Jaison drain had been inserted and exited the right lower quadrant. It was placed within the pelvis. It was secured to the skin using a 2-0 Prolene suture. The fascial incision was closed with a running #1 PDS suture. The knot of the suture was tacked in the subcutaneous layer using a 3-0 Vicryl stitch. The skin incision was closed with skin cale. Attention was turned to maturation of the colostomy. The staple line was cut off and hemostasis of the edges of the bowel was achieved with judicious use of electrocautery. There was good circumferential bleeding at the edge of the bowel. The colon was secured to the edge of the skin using interrupted 3-0 Vicryl sutures circumferentially. A sterile dressing was placed over the midline incision and the colostomy appliance was placed around the colostomy opening. The patient tolerated the procedure well. He was awakened, extubated and transferred to the recovery area in stable condition. VALENTINA
--- NOTE | 2016-11-06 18:34 | NUR ---
SHIFT SUMMARY PATIENT IS ALERT AND ORIENTED X3. PATIENT VITALS ARE STABLE AND PATIENT IS ON ROOM AIR. PATIENT AMBULATED WITH NURSING STAFF. PATIENT IS UP WITH 1X ASSIST. PATIENT DRESSING IS CLEAN, DRY, AND INTACT. GRAJEDA IS PATENT AND DRAINING. PATIENT COLOSTOMY HAS SANGUINEOUS DRAINAGE. PATIENT HAS REQUIRED NUMEROUS DOSES OF IV PAIN MEDICATION. WILL CONTINUE TO MONITOR.
[2016-11-06] MEDS: METOCLOPRAMIDE 10mg/2ml INJECTION IV PRN (19:21)
[2016-11-06] MEDS: PRAVASTATIN 20 MG TABLET PO SCH (21:29)
[2016-11-07] VITALS (16 sets, daily range): BP systolic 113–127; BP diastolic 72–87; PULSE 81–88; RESP 14–20; TEMP 97.8–99.1; O2SAT 93–95
[2016-11-07] MEDS: HYDROMORPHONE 2mg/ml INJECTION IV PRN ×3 (01:04→07:29)
[2016-11-07] MEDS: ONDANSETRON 4mg/2ml INJECTION IV PRN ×3 (04:52→19:36)
--- NOTE | 2016-11-07 05:41 | NUR ---
SHIFT SUMMARY PT ALERT AND ORIENTED X3, VITAL SIGNS STABLE ON ROOM AIR. DENIES C/P,N/V AND SOA. RATES PAIN CONSISTENTLY A 8 TO 9/10. AMBULATED ONE TIME ON SHIFT. PT HAS SLEPT THROUGHOUT THE NIGHT. WILL CONTINUE TO MONITOR.
[2016-11-07] MEDS: LR 1,000 ML IV SCH ×3 (06:14→23:40)
[2016-11-07] MEDS: METOCLOPRAMIDE 10mg/2ml INJECTION IV PRN (07:34)
--- NOTE | 2016-11-07 08:20 | NUR ---
JESSIE ROMAN SPOKE WITH DELFINO FROM WOUND TEAM. SHE HAS STARTED PATIENT EDUCATION. SHE HAS SET PT UP FOR HOME OSTOMY SUPPLIES WITH [facility].
[2016-11-07] MEDS ORDERED: ACETAMINOPHEN 500 MG TABLET PO ONE (08:25)
--- NOTE | 2016-11-07 09:00 | NUR ---
EPIDURAL DR. DIANE HERE TO DC EPIDURAL. PATIENT TOLERATED WELL. RN INFORMED PATIENT WITH EACH SET OF DISCONTINUATION. RN ALSO PERFORMED TEACHING ON DILAUDID PRORATE CLERK TO BE STARTED. PATIENT VERBALIZED UNDERSTANDING OF PLAN OF CARE. WILL CONTINUE TO MONITOR.
[2016-11-07] MEDS: HYDROMORPHONE PCA 30 MG/30 ML VIAL IV PRN (09:16)
--- NOTE | 2016-11-07 09:16 | ANESPD ---
Peripheral Nerve Blockade Physician: Harjeet Alcantara MD Date: 11/07/16 Surgical Procedure: thoracic epidural catheter removed intact with ease. additional analgesia contemplated via hydromorphone HEALTH RESEARCHER. Discussion Discussed risks/options/alternatives of anesthesia and questions answered. Patient consents. Nursing pain assessment noted. Initial Vital Signs First Documented Vital Signs Date Time Temp Pulse Resp B/P Pulse Ox O2 Delivery O2 Flow Rate FiO2 11/05/16 06:00 98.5 115 20 127/73 99 Room Air 11/05/16 15:18 6.00 Post Vital Signs Vital Signs Date Time Temp Pulse Resp B/P Pulse Ox O2 Delivery O2 Flow Rate FiO2 11/07/16 08:09 98.3 85 16 121/77 93 Room Air 11/05/16 20:03 2.00 Injectate Injection Injection made incrementally with constant monitoring and aspiration every [] ml. PAOLA DIANE MD Nov 07, 2016 09:16
[2016-11-07] MEDS: FLUCONAZOLE 100 MG TABLET PO SCH (09:22)
[2016-11-07] MEDS: LISINOPRIL 20 MG TABLET PO SCH (09:22)
[2016-11-07] MEDS: AMLODIPINE 5 MG TABLET PO SCH (09:22)
[2016-11-07] MEDS: DOCUSATE SODIUM 100 MG CAPSULE PO SCH ×2 (09:23→20:37)
[2016-11-07] MEDS: ERTAPENEM 1 G in NS 100 ML IV SCH (09:23)
[2016-11-07] MEDS ORDERED: HYDROMORPHONE 2mg/ml INJECTION IV PRN (10:30)
--- NOTE | 2016-11-07 10:47 | NUR ---
CM CM IN TO VISIT WITH PT. HE IS ALERT AND ORIENTED. HE CONTINUES TO DENY DC NEEDS.
--- NOTE | 2016-11-07 11:30 | PNF ---
Date of visit 11/06/2016 REASON FOR VISIT Postoperative followup. SUBJECTIVE Seth is doing fair with pain control with the epidural. He has not been willing to ambulate much but did ambulate once and says that he is going to ambulate again later this evening. He denies any nausea. OBJECTIVE VITALS: Afebrile with stable vitals on room air. ABDOMEN: Soft, appropriately tender. His dressings were left in place. His ostomy mucosa is pink and perfused. LABORATORY DATA White blood cell count 12.8. Hemoglobin 11.6. Blood sugars have been 107-133 today. ASSESSMENT 1. Postop day #1 status post open sigmoid colon resection with end colostomy formation, lysis of adhesions, and segmental small bowel resection. He is making appropriate clinical progress though pain control is an ongoing issue. 2. Type 2 diabetes mellitus - controlled while NPO. 3. Hypertension - stable on home medications. PLAN 1. Continue epidural until tomorrow. He will need his a.m. dose of Lovenox held so I changed him to 30 mg b.i.d. dosing so that he would have more prophylaxis. 2. He will need his Whatley catheter continued given the epidural. 3. Continue Invanz given his prior abscess cavity. VALENTINA
[2016-11-07] MEDS: ACETAMINOPHEN 500 MG TABLET PO SCH ×2 (14:27→20:38)
[2016-11-07] MEDS: PRAVASTATIN 20 MG TABLET PO SCH (20:37)
[2016-11-07] MEDS: ENOXAPARIN 30 MG/0.3 ML INJECTION SQ SCH (20:38)
[2016-11-08] VITALS (10 sets, daily range): BP systolic 117–144; BP diastolic 78–94; PULSE 75–97; RESP 14–18; TEMP 97.6–98.7; O2SAT 93–95
--- NOTE | 2016-11-08 00:12 | NUR ---
PAIN PT REPORTED PAIN DUE TO GRAJEDA RATED AT A 9/10. PT TOLD THAT WE COULD SEE ABOUT REMOVING IT, PT DENIES WANTING IT TO BE REMOVED. PT REPORTED DOCUMENT EXAMINER WORKING WELL FOR HIM AND THE ONLY PAIN IS WITH THE GRAJEDA
[2016-11-08 04:58] LABS: BASOPHILS # (AUTO) 0.1 T/MM3 (0-0.2); BASOPHILS % (AUTO) 0.6 % (0-2); EOSINOPHILS # (AUTO) 0.7 T/MM3 (0-0.5); EOSINOPHILS % (AUTO) 7.2 % (0-4); HCT - HEMATOCRIT 33.8 % (41-53); HGB - HEMOGLOBIN 10.7 GM/DL (13.5-17.5); IMMATURE GRANULOCYTE # (AUTO) 0.14 T/MM3 (0.00-0.03); IMMATURE GRANULOCYTE % (AUTO) 1.4 % (0.0-0.5); LYMPHOCYTES # (AUTO) 3.3 T/MM3 (1-4.8); LYMPHOCYTES % (AUTO) 32.4 % (23-45); MEAN CORPUSCULAR HGB 28.3 UUG (26-34); MEAN CORPUSCULAR HGB CONC(MCHC 31.7 GM/DL (31-37); MEAN CORPUSCULAR VOLUME 89.4 UM3 (80-100); MEAN PLATELET VOLUME 10.3 UM3 (9.4-12.4); MONOCYTES # (AUTO) 0.7 T/MM3 (0-0.8); MONOCYTES % (AUTO) 6.7 % (0-9.0); NEUTROPHILS #(AUTO)-ABSOLUTE 5.3 T/MM3 (1.8-7.7); NEUTROPHILS % (AUTO) 51.7 % (33-66); RED BLOOD COUNT 3.78 M/MM3 (4.50-5.90); WBC - WHITE BLOOD COUNT 10.3 T/MM3 (4.5-11.0)
[2016-11-08 05:07] LABS: ANION GAP 11 MEQ/L (5-15); BUN/CREATININE RATIO 16 RATIO (6-26); CALCIUM 9.1 MG/DL (8.4-10.2); CHLORIDE 103 MEQ/L (98-107); CO2 - CARBON DIOXIDE 28 MEQ/L (22-30); CREATININE 0.7 MG/DL (0.8-1.5); GLOMERULAR FILTRATION RATE 124; GLUCOSE 84 MG/DL (75-110); POTASSIUM 3.7 MEQ/L (3.6-5); SODIUM 142 MEQ/L (134-144)
--- NOTE | 2016-11-08 06:02 | NUR ---
STATUS PT SLEPT WELL THROUGH THE NIGHT. PT CONTINUES TO REPORT PAIN WELL CONTROLLED WITH THE SUPERVISOR BAKING IN USE. PT TURNS SELF IN BED WITHOUT ASSIST. GRAJEDA OUTPUT HAS BEEN RED ALL NIGHT. PT DENIES NAUSEA, SOA OR CHEST PAIN. MINIMAL OUTPUT FROM YUKI, NO OUTPUT FROM COLOSTOMY
[2016-11-08] MEDS: ONDANSETRON 4mg/2ml INJECTION IV PRN ×3 (06:37→21:17)
[2016-11-08] MEDS: ACETAMINOPHEN 500 MG TABLET PO SCH ×3 (06:37→21:07)
[2016-11-08] MEDS ORDERED: SCOPOLAMINE PATCH REMOVAL TD ONE (07:45)
[2016-11-08] MEDS: DOCUSATE SODIUM 100 MG CAPSULE PO SCH ×2 (10:10→21:07)
[2016-11-08] MEDS: LISINOPRIL 20 MG TABLET PO SCH (10:10)
[2016-11-08] MEDS: AMLODIPINE 5 MG TABLET PO SCH (10:10)
[2016-11-08] MEDS: FLUCONAZOLE 100 MG TABLET PO SCH (10:11)
[2016-11-08] MEDS: ERTAPENEM 1 G in NS 100 ML IV SCH (10:11)
[2016-11-08] MEDS: ENOXAPARIN 30 MG/0.3 ML INJECTION SQ SCH (10:11)
[2016-11-08] MEDS: POLYETHYL.GLYCOL 3350 PACKET 17gm PO SCH (10:11)
[2016-11-08] MEDS: LR 1,000 ML IV SCH ×3 (10:20→21:08)
--- NOTE | 2016-11-08 12:59 | NUR ---
UPDATE THIS RN WAS IN ADMINISTERING PRN NAUSEA MEDICATION, PT WAS CONVERSING WITH A FRIEND IN ROOM. PT DISCUSSING LEVEL OF PAIN WITH FRIEND AND THIS RN, STATING THAT ONCE THE EPIDURAL WAS REMOVED HIS PAIN DIMINISHED TO A 4TO5/10. THIS RN STATED THAT THAT WAS A LOWER NUMBER THAN BEFORE THE EPIDURAL(RATED CONSISTENTLY A 9TO 10/10) HE THEN STATED THAT HIS PAIN LEVEL HAD SIGNIFICANTLY DECREASED. NOTIFIED HIS RN FOR THE DAY OF WHAT WAS STATED. WILL CONTINUE TO MONITOR.
[2016-11-08] MEDS: METOCLOPRAMIDE 10mg/2ml INJECTION IV PRN (16:04)
--- NOTE | 2016-11-08 18:26 | NUR ---
SHIFT SUMMARY PATIENT IS ALERT AND ORIENTED X3. PATIENT VITALS ARE STABLE AND PATIENT IS ON ROOM AIR. PATIENT DENIES CP, NAUSEA, AND SOA. PATIENT HAS REQUIRED USE OD STRATEGIC MARKETING MANAGER THROUGH OUT SHIFT. PATIENT AMBULATED WITH NURSING STAFF 1X THIS SHIFT. PATIENT REQUIRED 2X PRN ANTINAUSEA MEDICATION. PATIENT IS UP WITH 1X ASSIST, AND GB. PATIENT DRESSING WAS CHANGED BY DR BRYAN AND ASSISTED BY THIS NURSE.
[2016-11-08] MEDS ORDERED: ENOXAPARIN 30 MG/0.3 ML INJECTION SQ SCH (21:00)
[2016-11-08] MEDS: PRAVASTATIN 20 MG TABLET PO SCH (21:06)
[2016-11-09] VITALS (17 sets, daily range): BP systolic 122–154; BP diastolic 85–97; PULSE 83–96; RESP 12–18; TEMP 97.7–98.7; O2SAT 90–95
--- NOTE | 2016-11-09 00:20 | NUR ---
Chart Check 24 hour chart check completed
[2016-11-09] MEDS: ACETAMINOPHEN 500 MG TABLET PO SCH ×3 (05:08→20:44)
[2016-11-09] MEDS: METOCLOPRAMIDE 10mg/2ml INJECTION IV PRN (05:08)
--- NOTE | 2016-11-09 06:10 | NUR ---
STATUS PATIENT ALERT AND ORIENTEDX3. VVS .PATIENT SLEPT OFF AND ON BETWEEN CARES. PATIENT C/O NAUSEA.PRN REGLAN AND ZOFRAN WAS GIVEN. ON ROOM AIR .DENIES CHEST PAIN,SOA. PATIENT USED ELECTRICITY TRADING ANALYST FOR PAIN .GRAJEDA CATHETER IN PLACE WITH VILLA URINE DRAINAGE. YUKI DRAINAGE FLUID IS SANGUINEOUS WITH MIN-MODERATE DRAINAGE. CALL LIGHT WITH REACH. CONTINUE TO MONITOR.
[2016-11-09] MEDS ORDERED: SCOPOLAMINE PATCH REMOVAL TD ONE (07:15)
[2016-11-09] MEDS: POLYETHYL.GLYCOL 3350 PACKET 17gm PO SCH (09:24)
[2016-11-09] MEDS: FLUCONAZOLE 100 MG TABLET PO SCH (09:24)
[2016-11-09] MEDS: DOCUSATE SODIUM 100 MG CAPSULE PO SCH ×2 (09:24→20:44)
[2016-11-09] MEDS: AMLODIPINE 5 MG TABLET PO SCH (09:25)
[2016-11-09] MEDS: LISINOPRIL 20 MG TABLET PO SCH (09:25)
[2016-11-09] MEDS: ERTAPENEM 1 G in NS 100 ML IV SCH (09:25)
[2016-11-09] MEDS: ENOXAPARIN 40 MG/0.4 ML INJECTION SQ SCH (09:25)
[2016-11-09] MEDS: LR 1,000 ML IV SCH ×2 (09:28→22:34)
[2016-11-09] MEDS: ONDANSETRON 4mg/2ml INJECTION IV PRN ×2 (10:45→20:43)
--- NOTE | 2016-11-09 11:57 | NUR ---
AMBULATING IN HALLS PT REFUSED TO WALK IN HALLS FOR HIS SECOND WALK TODAY. PT REPORTED HE WOULD LIKE TO WAIT UNTIL 1300.
--- NOTE | 2016-11-09 12:47 | PNF ---
DATE OF VISIT 11/07/2016 REASON FOR VISIT Postoperative followup. SUBJECTIVE Seth had his epidural catheter removed. His pain control has been fair with the SIGNS SALES REPRESENTATIVE. He has not ambulated yet today but had told the nurse that he would ambulate by 5 o'clock. It is now 10 minutes past 5 o'clock. He denies any nausea. OBJECTIVE VITALS: Afebrile with stable vitals on room air. ABDOMEN: Soft, appropriately tender. His dressings remain intact. Colostomy is pink and perfused. ASSESSMENT 1. Postop day #2 status post open sigmoid resection with end colostomy formation and extensive adhesiolysis along with segmental small bowel resection--appropriate clinical progress. 2. Type 2 diabetes mellitus--blood sugars stable. 3. Hypertension--stable on home medications. PLAN 1. SIGNS SALES REPRESENTATIVE was added following epidural removal. 2. He has had hematuria in his Whatley output, so I am hesitant to discontinue his urinary catheter. 3. Decrease IV fluid rate. 4. Recheck lab in the morning. EJD
--- NOTE | 2016-11-09 12:58 | PNF ---
DATE OF VISIT 11/08/2016 REASON FOR VISIT Postoperative followup. SUBJECTIVE Seth reports pain control with current pain level of 7 out of 10 in severity with his DRAFTER CARTOGRAPHIC. He has not walked yet today. He says that he has occasional nausea but has been tolerating sparing clear liquids well so far. OBJECTIVE VITAL SIGNS: Afebrile with stable vitals on room air. ABDOMEN: Soft, appropriately tender. His bandages were changed except for his ostomy appliance. His incision is clean, dry, and intact. There are no significant problems with his prior drain site in the left lower quadrant. Drain has serosanguineous output. The drain put out a total of 20 mL yesterday. LABORATORY DATA Cultures had grown out Enterococcus faecium but sensitivities were not done to ertapenem, which is the patient's current antibiotic. ASSESSMENT 1. Postop day #3 status post open sigmoid resection with end colostomy formation, lysis of adhesions, and segmental small bowel resection. 2. Diabetes mellitus--controlled. 3. Hypertension--controlled on home medications. 4. Hematuria. PLAN 1. I want to continue Seth's Whatley catheter given the hematuria. If he still has hematuria Thursday, I will contact Dr. Roberson. 2. I asked the lab to run sensitivities against ertapenem to be sure that he was receiving adequate therapy for the bacteria identified from surgical cultures of his ongoing abscess cavity. 3. Allow trays of noncarbonated clear liquids. Since he has had some nausea, I will not advance beyond clears currently. 4. Continue DRAFTER CARTOGRAPHIC for pain control. [facility]
[2016-11-09] MEDS ORDERED: VANCOMYCIN 2,000 MG in NORMAL SALINE 500 ML IV ONE (14:30)
[2016-11-09] MEDS ORDERED: NS 500 ML IV PRN (14:45)
--- NOTE | 2016-11-09 17:04 | PNF ---
DATE OF VISIT 11/09/2016 REASON FOR VISIT Postoperative followup. SUBJECTIVE Seth continues to complain of inadequate pain control with his OPTICIAN APPRENTICE. He has been hesitant to walk with the nurses. He has not had any colostomy output yet, but he denies nausea. He has not been taking much in by mouth. OBJECTIVE VITAL SIGNS: Afebrile with stable vitals on room air. ABDOMEN: Soft, appropriately tender. Dressings were left in place. His colostomy is pink and perfused. Drain has serosanguineous output and had 90 mL out yesterday. ASSESSMENT 1. Postop day #4 status post open sigmoid resection with end colostomy formation, lysis of adhesions, and segmental small bowel resection. 2. Diabetes mellitus--stable blood sugars. 3. Hypertension--controlled with home medications. 4. Hematuria--seems less visually today. PLAN 1. I contacted Dr. Marcy Reyna of Infectious Disease who recommended starting vancomycin based on the growth of Enterococcus. 2. I will contact Dr. Roberson tomorrow if there is ongoing evidence of hematuria. 3. Continue clear liquid diet since he has not been taking much by mouth. 4. Continue OPTICIAN APPRENTICE for pain control. I also told the nurse that he had Toradol ordered that might help with breakthrough pain. I will stop his nursing bolus because I do not want him to have more Dilaudid than the OPTICIAN APPRENTICE. 5. The patient had requested a sleep aid so I am ordering oral Benadryl at bedtime as needed. 6. Recheck lab in the morning. EJD
--- NOTE | 2016-11-09 19:19 | NUR ---
PROGRESS NOTE PT IS RESTING IN BED AT THIS TIME. PT IS ALERT AND ORIENTED X3. VITAL SIGNS STABLE ON RA WITH AN ELEVATED BLOOD PRESSURE. PT HAS AMBULATED X3 THIS SHIFT AND HAS HAD A POOR APPETITE. PT IS USING GLASS FINISHER FOR PAIN MANAGEMENT. DRESSING C/D/I. THE PT'S GRAJEDA HAS HAD ADEQUATE VILLA RED URINE OUTPUT. PT COMPLETED A BAG BATH ONCE HIS ARRIVED IN THE AFTERNOON. PT IS LAYING IN BED, CALL LIGHT WITHIN REACH, NO OTHER CONCERNS NOTED.
[2016-11-09] MEDS: DiphenhydrAMINE 25 MG CAPSULE PO PRN (20:43)
[2016-11-09] MEDS: PRAVASTATIN 20 MG TABLET PO SCH (20:43)
[2016-11-09] MEDS: HYDROMORPHONE PCA 30 MG/30 ML VIAL IV PRN (21:34)
[2016-11-09] MEDS: VANCOMYCIN 1,500 MG in NORMAL SALINE 500 ML IV SCH (23:21)
[2016-11-10] VITALS (8 sets, daily range): BP systolic 116–145; BP diastolic 79–96; PULSE 76–95; RESP 15–94; TEMP 98.2–98.9; O2SAT 95–97
[2016-11-10 05:15] LABS: BASOPHILS # (AUTO) 0.1 T/MM3 (0-0.2); BASOPHILS % (AUTO) 0.9 % (0-2); EOSINOPHILS # (AUTO) 1.1 T/MM3 (0-0.5); EOSINOPHILS % (AUTO) 12.1 % (0-4); HCT - HEMATOCRIT 34.7 % (41-53); HGB - HEMOGLOBIN 11.4 GM/DL (13.5-17.5); IMMATURE GRANULOCYTE # (AUTO) 0.18 T/MM3 (0.00-0.03); LYMPHOCYTES # (AUTO) 1.6 T/MM3 (1-4.8); LYMPHOCYTES % (AUTO) 18.3 % (23-45); MEAN CORPUSCULAR HGB 28.7 UUG (26-34); MEAN CORPUSCULAR HGB CONC(MCHC 32.9 GM/DL (31-37); MEAN CORPUSCULAR VOLUME 87.4 UM3 (80-100); MEAN PLATELET VOLUME 10.2 UM3 (9.4-12.4); MONOCYTES # (AUTO) 0.7 T/MM3 (0-0.8); MONOCYTES % (AUTO) 7.5 % (0-9.0); NEUTROPHILS #(AUTO)-ABSOLUTE 5.3 T/MM3 (1.8-7.7); NEUTROPHILS % (AUTO) 59.2 % (33-66); RED BLOOD COUNT 3.97 M/MM3 (4.50-5.90)
[2016-11-10 05:17] LABS: ANION GAP 13 MEQ/L (5-15); BUN/CREATININE RATIO 12 RATIO (6-26); CALCIUM 9.1 MG/DL (8.4-10.2); CHLORIDE 102 MEQ/L (98-107); CO2 - CARBON DIOXIDE 27 MEQ/L (22-30); CREATININE 0.5 MG/DL (0.8-1.5); GLOMERULAR FILTRATION RATE 183; GLUCOSE 103 MG/DL (75-110); POTASSIUM 3.5 MEQ/L (3.6-5); SODIUM 142 MEQ/L (134-144)
--- NOTE | 2016-11-10 05:34 | NUR ---
SHIFT SUMMARY PT ALERT AND ORIENTED X3, VITAL SIGNS STABLE ON ROOM AIR. PT DENIES C/P,N/V AND SOA. PT HAS REQUIRED 1 DOSE OF PRN NAUSEA MEDICATION ON THIS SHIFT. PT HAS AMBULATED ONCE IN THE HALLS WITH STAFF ON THIS SHIFT. PT HAS STATED THAT PAIN IS CONTROLLED WITH THE TAPE KELLER OPERATOR. WILL CONTINUE TO MONITOR.
[2016-11-10] MEDS: ACETAMINOPHEN 500 MG TABLET PO SCH ×3 (06:34→21:14)
[2016-11-10] MEDS: VANCOMYCIN 1,500 MG in NORMAL SALINE 500 ML IV SCH (06:34)
[2016-11-10] MEDS: POLYETHYL.GLYCOL 3350 PACKET 17gm PO SCH (08:40)
[2016-11-10] MEDS: ENOXAPARIN 40 MG/0.4 ML INJECTION SQ SCH (08:40)
[2016-11-10] MEDS: FLUCONAZOLE 100 MG TABLET PO SCH (08:41)
[2016-11-10] MEDS: DOCUSATE SODIUM 100 MG CAPSULE PO SCH ×2 (08:42→21:13)
[2016-11-10] MEDS: LISINOPRIL 20 MG TABLET PO SCH (08:42)
[2016-11-10] MEDS: AMLODIPINE 5 MG TABLET PO SCH (08:42)
[2016-11-10] MEDS: ERTAPENEM 1 G in NS 100 ML IV SCH (09:00)
--- NOTE | 2016-11-10 09:25 | NUR ---
COLOSTOMY TEACHING UPON INITIAL ASSESSMENT THIS AM, THIS RN NOTED A MODERATE AMOUNT OF LIQUID SOFT BROWN BM AND FLATUS PRESENT IN PT'S COLOSTOMY. COLOSTOMY EDGES WERE BEGINNING TO BECOME COMPROMISED. THE TOP OF THE COLOSTOMY BAG WAS OPEN. THIS RN EXPLAINED TO PT THAT HIS COLOSTOMY BAG WOULD NEED TO BE CHANGED AND ASKED IF HE WOULD LIKE TO PARTICIPATE IN THIS CHANGE. PT SHOOK HEAD NO. THIS RN ASKED IF HE WOULD FEEL COMFORTABLE EVEN WATCHING THIS RN I CHANGED BAG AND EXPLAINED THE CHANGE I WENT. PT AGREED TO WATCH THIS RN DEMONSTRATE. SUPPLIES GATHERED. PT REMAINED IN BED WITH HOB ELEVATED SLIGHTLY. COMPROMISED COLOSTOMY BAG REMOVED GENTLY. STOMA ASSESSED AND APPEARED PINK. REMAINING BOWEL ON SKIN WIPED CLEAN WITH A WIPE. STOMA MEASURED AND WAFER OPENING ADJUSTED TO APPROPRIATE SIZE. WAFER AND NEW COLOSTOMY BAG APPLIED TO PATIENT. THE LEFT EDGE OF THE WAFER NOT SECURED DOWN ALL THE WAY DUE TO THE PROXIMITY OF PT'S MIDLINE INCISION WITH BRIDGET. FOAM TAPE FROM MIDLINE INCISION DRESSING HELPING TO SECURE THE LEFT SIDE OF THE WAFER DOWN. PT DID REPORT MILD DISCOMFORT THROUGHOUT THIS TIME AND DID MENTION THAT "THIS IS JUST GROSS." THIS RN ENFORCED THAT THIS WAS A TEMPORARY COLOSTOMY AND THAT THERE WAS HOPE FOR IMPROVEMENT AND REVERSAL. PT DENIED ANY QUESTIONS AT THIS TIME, APPEARED A BIT OVERWHELMED, HOWEVER VERBALIZED THAT THIS TEACHING/DEMONSTRATION WAS SLIGHTLY HELPFUL IN UNDERSTANDING THE COLOSTOMY. PT WAS NOTIFIED THAT THE NEXT BM THAT HE HAD IN COLOSTOMY, THE NURSE WOULD ASSIST HIM TO THE BATHROOM AND ASSIST HIM WITH EMPTYING CONTENTS. PT VERBALIZED UNDERSTANDING. WILL CONTINUE TO MONITOR CLOSELY.
--- NOTE | 2016-11-10 09:26 | CONSPD ---
Consultation Info Date DATE: 11/10/16 TIME: 09:00 Date of Consultation: Nov 10, 2016 Attending Physician: Dr. Schmidt Reason for Consultation: antibiotic recs HPI - Adult Date DATE: 11/10/16 TIME: 09:00 General Date of Admission Date of Admission: Nov 05, 2016 at 05:46 Chief Complaint: abdominal pain History of Present Illness Mr. Cabrera is a 41-year-old man who was first diagnosed with a diverticular abscess in June 2016. He was hospitalized here at [facility] for a few days and then he was discharged to [facility] in [place]. He was sent to [place]. The abscess was located in the sigmoid region between the sigmoid colon and the dome of the bladder. He was evaluated by interventional radiology at [facility] but ultimately it was felt that this could not be safely percutaneously drained. He had previously been treated with Cipro and Flagyl as an outpatient prior to this admission. The patient thinks that he was continued on oral antibiotics following that hospitalization for about a month or so. It sounds like he was most likely treated with additional Cipro and Flagyl. He followed up at [facility] the end of August. He thinks he had another CT scan the end of August and they discussed with him that again they did not feel that it would be safe to drain it. They felt that this process would resolve with antibiotic therapy alone. He was continued on oral antibiotics, however the pain in the pelvis became so severe that he could not walk. He presented to the emergency department and was admitted September 22. He had a CT on 09/19/16 which showed the size of the fluid collection was similar to the previous scans and it measured about 3.5 cm without significant change. He was placed on Zosyn, and taken to surgery on September 24 for a diagnostic laparoscopy with conversion to exploratory laparotomy. He underwent lysis of adhesions for 125 minutes. He underwent drainage of this intraabdominal abscess which was adherent to the dome of the bladder. There was no obvious bowel perforation noted intraoperatively. Fluid was sent for culture and it grew two strains of E. coli both resistant to quinolones and ampicillin as well as Bactrim. One of these isolates was also resistant to cefazolin and Zosyn. His antibiotics were changed from Zosyn to ertapenem on September 26. He also had vancomycin added due to leukocytosis which was eventually stopped. I saw him initially on . He had another CT that day that failed to show any kind of fistula, and the size of the abscess was smaller. He was discharged home on Invanz and po fluconazole, which was empiric. I saw him in follow up in the office a couple weeks ago, and he was doing ok, but continued to have some abdominal pain and fatigue. He had a repeat CT abd/pelvis due to decreased YUKI drain output on 10/24. This showed the fluid collection was somewhat larger. He was taken to the OR on 11/05/16 and underwent drainage of the abscess, FELICE, and Arnold's procedure. Intra-op cultures were obtained, and have grown slight growth of GPC and GNR. The GNR is an anaerobe, and the GPC is E. faecium, resistant to Ampicillin. The E. coli has not been isolated. This morning the patient's peripheral IV and also his midline have been leaking. He reports that he is having some pain related to his surgery, but the previous pain has resolved. He has stool noted from his colostomy today. He is on a liquid diet. Past Medical History Past Medical History Type II diabetes-diet controlled Chronic Back pain issues status post fusion in 2005 hypertension Hx diverticulitis with pericolonic abscess- 06/2016 Kidney stones "Pancreatitis with ? Ruptured appendix" at age 14 Surgical History Patient's Surgical History: Spinal fusion 2005 Knee scope for meniscal issues- multiple, bilateral Strabismus surgeries. Tympanic membrane reconstruction 10 Left carpal tunnel repair Multiple shoulder scopes Appendectomy Tonsillectomy and adenoidectomy Current Medications Home Meds Active Scripts Ertapenem Sodium (Invanz) 1 G/Vial Vial, 1 G IV DAILY for 30 Days Prov:PAULETTE WALTERS MD 10/03/16 Hydrocodone/Acetaminophen (Hydrocodon-Acetaminoph 7.5-325) 7.5-325 Tablet, 1 TAB PO Q6H Y for pain, #[address] or operate heavy machinery if taking this medication Prov:PAULETTE WALTERS MD 10/03/16 Fluconazole (Fluconazole) 200 Mg Tablet, 2 TAB PO DAILY for 30 Days, #60 TAB Prov:PAULETTE WALTERS MD 10/03/16 Polyethylene Glycol 3350 (Healthylax) 17 Gm Powd.pack, 17 G PO DAILY, #1 BOTTLE Prov:PAULETTE WALTERS MD 10/03/16 Amlodipine Besylate (Amlodipine Besylate) 5 Mg Tablet, 5 MG PO DAILY, #30 TAB for elevated blood pressure Prov:PAULETTE WALTERS MD 10/03/16 Reported Medications Lisinopril (Lisinopril) 20 Mg Tablet, 20 MG PO DAILY 09/19/16 Aspirin (Aspirin) 81 Mg Tab.chew, 81 MG PO DAILY 09/19/16 Pravastatin Sodium (Pravastatin Sodium) 20 Mg Tablet, 20 MG PO DAILY 09/19/16 Allergies: Coded Allergies: No Known Allergies (Unverified , 11/05/16) Family History Family History: Mother- DM Father- diabetes, hypertension Brother alive and well Social History Smoking Status: Current every day smoker Does patient use chewing tobac: No # of Packs/Tins per Day: 1/2 # of Years: 23 Second Hand Exposure: No Substance Use Type: does not use Alcohol Intake: none, occasionally Last Drink: days (ago) (14) Marital Status: Number of Children: 0 Current Occupational Status: unemployed Current Occupation: fork truck operator Advance Directives: No DPOA for Healthcare Only Review of Systems Constitutional: DENIES: chills, fever Cardiovascular DENIES: chest pain Pulmonary Respiratory: DENIES: cough, dyspnea GI Upper Abdomen: DENIES: nausea, vomiting Lower Abdomen: pain (related to surgery) General: hematuria (per report), DENIES: dysuria Integumentary Skin: DENIES: itching, rash Neurological General: DENIES: headache All Other Systems All Other Systems: Reviewed Physical Exam General General Nourishment: well nourished, well developed, apparent age, adult General Body Habitus: well groomed Vital Signs Vital Signs Date Time Temp Pulse Resp B/P Pulse Ox O2 Delivery O2 Flow Rate FiO2 11/10/16 08:36 98.9 91 15 136/96 96 Room Air 21 Height (Feet): 5 Height (Inches): 9.00 Eyes Brief: FOUND: EOMI, PERRL ENMT Brief: FOUND: mucosa moist, normal dentition, NOT FOUND: lesions Neck Brief: NOT FOUND: adenopathy, nuchal rigidity Respiratory Brief: FOUND: clear all coyne, equal bilaterally Cardiovascular (brief) Cardiac Brief: FOUND: regular rate, regular rhythm, NOT FOUND: murmur Abdomen (brief) Abdominal Brief: FOUND: distended (slightly), other (colostomy with brown stool ), soft, tender (mild, on L side) (brief) Male Brief: FOUND: other (anthony in place with clear yellow urine) Lymphatic (brief) Lymphatic Brief: NOT FOUND: lymphedema Integumentary (brief) Integumentary Brief: FOUND: other (abdominal incision covered, R arm former IV site slightly red), pink, warm, NOT FOUND: rash Neurologic (brief) Neurological Brief: FOUND: cranial 2-12 intact, motor Neurologic RN Documented GCS Eye Opening: Verbal: Motor: Total: 15 Psychiatric (brief) FOUND: attentive, normal affect Laboratory Laboratory Tests Test 11/08/16 10:33 11/08/16 18:13 11/08/16 20:51 11/09/16 05:06 Glucometer 75mg/dL 110mg/dL 88mg/dL 100mg/dL Test 11/09/16 11:40 11/09/16 17:44 11/09/16 19:43 11/10/16 04:29 Glucometer 97mg/dL 98mg/dL 113mg/dL White Blood Count 9.0T/MM3 Red Blood Count 3.97M/MM3 Hemoglobin 11.4GM/DL Hematocrit 34.7% Mean Corpuscular Volume 87.4UM3 Mean Corpuscular Hemoglobin 28.7UUG Mean Corpuscular Hemoglobin Concent 32.9GM/DL RDW Standard Deviation 41.0FL Platelet Count 354T/MM3 Mean Platelet Volume 10.2UM3 Immature Granulocyte % (Auto) 2.0% Neutrophils (%) (Auto) 59.2% Lymphocytes (%) (Auto) 18.3% Monocytes (%) (Auto) 7.5% Eosinophils (%) (Auto) 12.1% Basophils (%) (Auto) 0.9% Absolute Immature Granulocyte (auto 0.18T/MM3 Absolute Neutrophils (auto) 5.3T/MM3 Absolute Lymphocytes (auto) 1.6T/MM3 Absolute Monocytes (auto) 0.7T/MM3 Absolute Eosinophils (auto) 1.1T/MM3 Absolute Basophils (auto) 0.1T/MM3 Turbidity < 20 Sodium Level 142MEQ/L Potassium Level 3.5MEQ/L Chloride Level 102MEQ/L Carbon Dioxide Level 27MEQ/L Anion Gap 13MEQ/L Blood Urea Nitrogen 6.0MG/DL Creatinine 0.5MG/DL Glomerular Filtration Rate Calc 183 BUN/Creatinine Ratio 12RATIO Glucose Level 103MG/DL Calculated Osmolality 271MOSM/KG Calcium Level 9.1MG/DL Icterus Index < 2 Chemistry Specimen Hemolysis < 15 Test 11/10/16 06:39 Glucometer 91mg/dL Microbiology PATIENT: ANASTACIA CABRERA Act#:[id number] Loc: [facility] [place] [id number]-P Specimen: [id number] Collected: 11/05/16 Received: 11/05/[address]: MANDY SCHMIDT MD Source: ABSCESS Procedure Result Verified MICROBIOLOGY GRAM STAIN Final 11/05/16 RESULT FEW GRAM POSITIVE COCCI IN PAIRS FEW GRAM NEGATIVE RODS MANY WHITE BLOOD CELLS WOUND CULTURE DEEP TISS-AER/AN Preliminary 11/08/16856 Organism 1 ENTEROCOCCUS FAECIUM (GRP D) QUANTITY: SLIGHT GROWTH Organism 2 GRAM NEGATIVE ELEANOR QUANTITY: SLIGHT GROWTH E FACIUM(D INTERP LE ------ --------- AMPICILLIN R 16 DOXYCYCLINE R >=16 LINEZOLID S 2 VANCOMYCIN S <=0.5 WOUND CULTURE DEEP TISS-AER/AN Preliminary (changed) 11/07/16-0908 Organism 1 GRAM POSITIVE COCCI QUANTITY: SLIGHT GROWTH Organism 2 GRAM NEGATIVE ELEANOR QUANTITY: SLIGHT GROWTH WOUND CULTURE DEEP TISS-AER/AN Preliminary (changed) 11/05/16-1621 CULTURE INITIATED - RESULTS PENDING WOUND CULTURE DEEP TISS-AER/AN Preliminary (changed) 11/05/16-0956 CULTURE INITIATED - RESULTS PENDING Impression/Recommendation Impression IMPRESSION 1. Chronic diverticular abscess located near the dome of the bladder status post-surgical drainage on 09/24/16, cultures with two strains of E. coli both multidrug resistant. S/p >4 weeks of Invanz and fluconazole therapy. S/p surgical drainage, small bowel resection and Arnold's procedure 11/05/16, surgical cultures with slight growth of E. faecium and anaerobic GNR. 2. Abdominal pain, chronic, improving. 3. Diabetes mellitus type 2, diet controlled. 4. Hypertension. 5. Hyperlipidemia. 6. Chronic back pain following spinal fusion surgery. 7. Tobacco use. Recommendation He has lost his IV access this morning. He has received Invanz for 4 days post- op. I'll change his antibiotics to po today so that he will not have to have another PICC/midline. I really think this abscess should be mostly resolved. I 'll give him Zyvox for the E. faecium, and levaquin and flagyl to cover enteric home. I'll d/c the fluconazole. Will continue antibiotics for 10 days. Discussed with Pharmacy regarding drug-drug interaction between Zyvox and reglan. Will hold reglan for now. Hopefully he can have his anthony removed soon , and be planning for discharge soon. NAVEEN MCKEON MD Nov 10, 2016 09:03
[2016-11-10] MEDS: LINEZOLID 600 MG TABLET PO SCH ×2 (09:38→21:13)
[2016-11-10] MEDS: METRONIDAZOLE 500 MG TABLET PO SCH ×2 (09:38→21:13)
[2016-11-10] MEDS: LEVOFLOXACIN 750 MG TABLET PO SCH (09:38)
[2016-11-10] MEDS ORDERED: IBUPROFEN 800 MG TABLET PO PRN (10:45)
[2016-11-10] MEDS: OXYCODONE I.R. 5 MG TABLET PO PRN ×3 (10:47→21:15)
--- NOTE | 2016-11-10 12:32 | NUR ---
Status This RN in room to answer call light. Patient informed RN he needed something for his nerves. RN asked patient to elaborate. Patient states,''Well I guess I'm just depressed. I have been in and out of the hospital for months." This RN informed patient, I would discuss the situation with Eloina Duncan RN (primary nurse) and have Eloina speak with Dr. Schmidt. Patient verbalized understanding.
--- NOTE | 2016-11-10 13:37 | WOUNDPN ---
Nurse to Nurse Wound Consult Started education on ostomy last week. Today in to see pt discussed ostomy care and pt deferred to home health, "it just grosses me out to look at it". Spoke with porter sample case about making sure home health is helping with education. BRANDON TARANGO RN Nov 10, 2016 13:37
--- NOTE | 2016-11-10 13:39 | NUR ---
JESSIE THIS WORKER MET WITH PT ON THIS DATE. INTRODUCED SELF AND ROLE OF CASE MANAGEMENT. PT REPORTED THAT HE LIVES AT HOME WITH AND HIS MOTHER. PT NOT COMFORTABLE WITH HIS OSTOMY AND THE CARE THAT IT NEEDS. THIS WORKER REVIEWED NEEDS AT HOME. PT REPORTED THAT HE WOULD LIKE TO SEE IF HOME HEALTH SERVICES COULD BE STARTED. THIS WORKER OFFERED A LIST OF HOME HEALTH SERVICES TO CHOSE FROM. PT DECLINED AND WANTED THE HOME HEALTH AGENCY FROM THE HOSPITAL. PT REPORTED THAT HE WOULD HAVE OSTOMY SUPPLIES DELIVERED TO HIS HOME. PT REPORTED THAT HE HAD ABILITY TO AFFORD HIS MEDICATIONS. PT IS A PT OF [employer] AND GETS HIS MEDICATIONS FILLED FROM THERE. PT DECLINED THIS WORKER'S ASSISTANCE WITH THIS. DOES NOT HAVE PRESCRIPTION DRUG COVERAGE, BUT REPORTS THAT HE IS ABLE TO AFFORD THEM WITH THE HELP OF [facility]. PT WAS GIVEN THIS WORKER'S CONTACT INFORMATION AND KNOWS TO CONTACT THIS WORKER WITH ANY ADDITIONAL NEEDS. PT TO HAVE A CONSULT/VISIT FROM [facility] ON THIS DATE AROUND 1300. THIS WORKER CONFIRMED WITH WOUND CARE THAT SUPPLIES HAD BEEN ORDERED. DELIVERY SCHEDULED FOR 11/10/16.
--- NOTE | 2016-11-10 16:49 | PNF ---
DATE OF VISIT 11/10/2016 REASON FOR VISIT Postoperative followup. SUBJECTIVE Seth had some colostomy function today. His ostomy appliance was changed by the nurse due to some leakage. She has been trying to show him some of the care for his colostomy. Dr. Reyna came by today and changed him to oral antibiotics. His IV site and midline had both infiltrated, and the patient strongly wanted to avoid replacement of an IV site. He was agreeable to transition to oral pain medication and discontinuation of his TIRE VULCANIZER. OBJECTIVE VITAL SIGNS: Afebrile with stable vitals on room air. GENERAL: The patient is awake and alert in no acute distress. ABDOMEN: Soft, appropriately tender. His midline incision is healing well with no evidence of infection. His ostomy is pink and perfused. There is no current output in the ostomy bag other than air. His prior drain site is closing and is nearly closed. His drain has serosanguineous output. He had 65 mL out yesterday. LABORATORY DATA White blood cell count 9.0. Hemoglobin stable at 11.4. ASSESSMENT 1. Postop day #5 status post open sigmoid colon resection with end colostomy formation, lysis of adhesions, and segmental small bowel resection. 2. Diabetes mellitus--blood sugars stable with diet control. 3. Hypertension--controlled home medications. 4. Hematuria--no visible hematuria is noted in his [place] bag today. PLAN 1. Antibiotics were changed by Dr. Marcy Reyna of Infectious Disease. He is now on oral antibiotics only. 2. I have a page out to Dr. Roberson to see if he is okay with discontinuation of his catheter. 3. I encouraged oral intake since he is not getting IV fluids any longer. 4. TIRE VULCANIZER and Toradol were discontinued along with IV fluids. 5. He was started on oral ibuprofen and oxycodone p.r.n. He is still on the scheduled Tylenol. 6. Case Management is arranging home health to help get him established with his colostomy. Outpatient supplies have also been ordered from [facility]. [facility]
--- NOTE | 2016-11-10 17:44 | NUR ---
COLOSTOMY WITH THE ASSISTANCE OF THIS RN, PT EMPTIED HIS COLOSTOMY INTO GRADUATED CYLINDER. PT INITIALLY STATED "THIS IS GROSS, I CAN'T DO THIS." THIS RN PROVIDED PT VERBAL ENCOURAGEMENT AND PT WAS WILLING TO PROCEED WITH EMPTYING COLOSTOMY. PT DEMONSTRATED THIS WELL AND HAND HYGIENE PERFORMED. 100CC OF LIQUID BROWN BM OBTAINED AND SIGNIFICANT FLATUS WAS BURPED OUT OF THE COLOSTOMY. PT REPOSITIONED SELF IN CHAIR. WILL CONTINUE TO MONITOR CLOSELY AND CONTINUE TO PROVIDE TEACHING WITH COLOSTOMY.
[2016-11-10] MEDS: ONDANSETRON ODT 4 MG TAB PO PRN (21:11)
[2016-11-10] MEDS: PRAVASTATIN 20 MG TABLET PO SCH (21:43)
--- NOTE | 2016-11-10 22:46 | NUR ---
SUMMARY PT WANTED THIS RN IN ROOM TO EMPTY COLOSTOMY, PT STOOD AT TOILET WHILE I DEMONSTRATED HOW TO EMPTY. AFTER I WAS DONE, PT ADMITTED HE HAD DONE THIS BEFORE. EXPLAINED TO PT I PLAN ON HAVING HIM EMPTY ON HIS OWN NEXT TIME,WITH HELP IF NEEDED. PT THEN PROPERLY EMPTIED HIS YUKI DRAIN FROM RIGHT ABD AREA. PAIN HAS BEEN MODERATE TO SEVERE, 4-8/10 IN ABD. GIVEN TYLENOL AND ROXICODONE. ALSO GIVEN A ZOFRAN ODT FOR QUEASINESS. PT A LOW FALL RISK. ENCOURAGED HIM TO CALL IF FEELING UNSTEADY ON FEET.
--- NOTE | 2016-11-10 23:49 | NUR ---
output PT HAS NOT TRIED TO VOID SINCE GRAJEDA DC'D AT 1750 TODAY. JUST ASKED PT IF UNCOMFORTABLE. PT DENIES DISCOMFORT AND WILL LET US KNOW IF THAT CHANGES. SAW SUPERINTENDENT RN AWARE OF NO VOID POST GRAJEDA.
[2016-11-11 00:10] VITALS: BP 116/73; PULSE 79; RESP 20; TEMP 98.5; O2SAT 96
--- NOTE | 2016-11-11 01:50 | NUR ---
STATUS PATIENT HAS NOT VOID SINCE GRAJEDA DC'D AT 1750 ON 11/10. THIS RN AND IRON INSTALLER ASKED PATIENT TO BATHROOM OR USE URINAL TO URINATE. PATIENT REFUSED TO TRY AND BLADDER SCAN. PATIENT WAS UPSET AND WANTED THIS RN TO CALL DR TO OK TO TRY THIS MORNING. PATIENT STATED "I DIDN'T DRINK A LOT FLUIDS.WHY I HAVE TO PEE RIGHT NOW." DENIES PAIN AT THIS TIME. PATIENT REFUSED PAIN MED EVEN RN OFFERED. ASKED PATIENT IF UNCOMFORTABLE.PATIENT DENIES DISCOMFORT AND WILL LET US KNOW IF THAT CHANGE. PATIENT WENT BACK TO SLEEP. CONTINUE TO MONITOR.
[2016-11-11 04:00] VITALS: BP 117/72; PULSE 79; RESP 20; TEMP 98; O2SAT 95
[2016-11-11] MEDS: OXYCODONE I.R. 5 MG TABLET PO PRN ×3 (05:01→18:49)
[2016-11-11] MEDS: LEVOFLOXACIN 750 MG TABLET PO SCH (06:01)
[2016-11-11] MEDS: ONDANSETRON ODT 4 MG TAB PO PRN ×3 (06:01→18:48)
[2016-11-11] MEDS: ACETAMINOPHEN 500 MG TABLET PO SCH ×3 (06:02→21:01)
--- NOTE | 2016-11-11 06:23 | NUR ---
STATUS PATIENT WAS ABLE TO VOID 500ML LIGHT ELIAN COLOR URINE WITH USING URINAL AFTER GRAJEDA DC'D . PATIENT C/O PAIN TO ABD INCISION AREA,RATED 7/10. PRN ROXICODONE WAS GIVEN. PATIENT C/O NAUSEA. PRN ZOFRAN ODT WAS GIVEN. PATIENT REFUSED TO EMPTY YUKI DRAINAGE AND COLOSTOMY BAG AT THIS TIME. PATIENT STATED " THAT CAN DO LATER ON." PATIENT WENT BACK TO SLEEP. CALL LIGHT WITHIN REACH. CONTINUE TO MONITOR. [
[2016-11-11] MEDS: METRONIDAZOLE 500 MG TABLET PO SCH ×2 (08:21→21:00)
[2016-11-11] MEDS: AMLODIPINE 5 MG TABLET PO SCH (08:21)
[2016-11-11] MEDS: DOCUSATE SODIUM 100 MG CAPSULE PO SCH ×2 (08:21→21:00)
[2016-11-11] MEDS: LISINOPRIL 20 MG TABLET PO SCH (08:21)
[2016-11-11] MEDS: LINEZOLID 600 MG TABLET PO SCH ×2 (08:21→21:00)
[2016-11-11] MEDS: ENOXAPARIN 40 MG/0.4 ML INJECTION SQ SCH (08:22)
[2016-11-11] MEDS: POLYETHYL.GLYCOL 3350 PACKET 17gm PO SCH (08:22)
[2016-11-11 09:09] VITALS: PULSE 79; RESP 20
[2016-11-11 09:19] VITALS: BP 117/72; PULSE 82; RESP 16; TEMP 97.9; O2SAT 95
--- NOTE | 2016-11-11 11:27 | NUR ---
THIS WORKER SPOKE TO PT IN ROOM. PT LAYING IN BED AT THIS TIME. THIS WORKER INQUIRED REGARDING ANY NEEDS FOR PLANNING FOR DISCHARGE. PT DENIED ANY NEEDS OTHER THAN HOME HEALTH SERVICES. PT WAS ENCOURAGED TO CONTACT THIS WORKER WITH ANY NEEDS. PT PLANNING TO GET MEDICATIONS FILLED AT THE [facility]. THIS WORKER INQUIRED REGARDING THE DELIVERY OF HIS OSTOMY SUPPLIES TO HIS HOME. PT NOT SURE IF THEY HAVE ARRIVED YET. Addendum: 11/11/16 at 1221 by SONYA FELICIANO PT CALLED THIS WORKER AND REQUESTED A VISIT. THIS WORKER MET WITH PT IN ROOM. PT CONCERNED ABOUT FINANCES/BILLING FOR PAST AND CURRENT HOSPITAL BILLS. THIS WORKER REVIEWED HEALTH CARE ASSISTANCE APPLICATION WITH PT AND PROVIDED A COPY OF THIS TO PT FOR COMPLETION. QUESTIONS ANSWERED AT THIS TIME.
[2016-11-11 11:51] VITALS: BP 109/71; PULSE 72; RESP 16; TEMP 97.9; O2SAT 96
--- NOTE | 2016-11-11 18:29 | NUR ---
PROGRESS NOTE PT IS ALERT AND ORIENTED X3. VITAL SIGNS ARE STABLE ON RA. THE PT IS RESTING IN THE RECLINER AT BEDSIDE EATING DINNER AT THIS TIME. THE PT HAS AMBULATED THE HALLS X4 THIS SHIFT. THE PT HAS BEEN ENCOURAGED TO INCREASED PO INTAKE THIS SHIFT BUT REFUSES TO DRINK WATER. PT HAS HAD ADEQUATE URINE OUTPUT THIS SHIFT. PT IS ASKING ABOUT POSSIBLE DISCHARGE. WAITING TO HEAR FROM DR. BRYAN FOR FURTHER INSTRUCTION. PT HAS BEEN GIVEN PRN NAUSEA AND PAIN MEDICATION. WILL CONTINUE TO MONITOR.
--- NOTE | 2016-11-11 20:10 | NUR ---
DR ALYSHA BRYAN CALLED BACK AFTER PAGE. PT WAS UNDER IMPRESSION HE HAD ALREADY BEEN DISCHARGED. HE HAD NOT. DR BRYAN CANNOT COME UNTIL ABOUT 2200 TO DISMISS HIM. WAS NOT AWARE THAT ALL OF CM DOCUMENTS WERE COMPLETE. PT HAD RECEIVED A CALL FROM HOME HEALTH THIS EVENING STATING THAT THEY WOULD BE AT HIS HOUSE IN THE A.M. AT 1030. PT UPSET THAT HE CANNOT GO HOME TONIGHT. EXPLAINED TO PATIENT HIS RX OF ROXICODONE WOULD NOT BE ABLE TO BE FILLED WITHOUT WRITTEN RX AND IT WOULD BE TOO LATE BY THEN. APOLOGIZING TO PATIENT FOR THE DELAY.
[2016-11-11 20:16] VITALS: BP 121/76; PULSE 73; RESP 16; O2SAT 97
[2016-11-11] MEDS: DiphenhydrAMINE 25 MG CAPSULE PO PRN (21:00)
[2016-11-11] MEDS: PRAVASTATIN 20 MG TABLET PO SCH (21:00)
[2016-11-12 00:30] VITALS: BP 114/71; PULSE 78; RESP 16; TEMP 97.4; O2SAT 97
[2016-11-12] MEDS: OXYCODONE I.R. 5 MG TABLET PO PRN (03:45)
[2016-11-12 04:05] VITALS: BP 117/78; PULSE 74; RESP 17; TEMP 97.1; O2SAT 96
--- NOTE | 2016-11-12 04:10 | NUR ---
SUMMARY GIVEN 2 ROXICODONE'S AT 0350 FOR 7-8/10 PAIN IN ABD, USUAL PLACE. PT SEEMED TO BE SLEEPING WELL AFTER RECEIVING PRN BENADRYL FOR INSOMNIA, PT DENIES SLEEPING WELL SO FAR. UP AD VÍCTOR. EMPTIED OWN OSTOMY AND YUKI WITH RN SUPERVISION. DR BRYAN SAW PT ABOUT 2229.
[2016-11-12] MEDS: LEVOFLOXACIN 750 MG TABLET PO SCH (06:29)
[2016-11-12] MEDS: ACETAMINOPHEN 500 MG TABLET PO SCH (06:29)
--- NOTE | 2016-11-12 07:19 | PNF ---
DATE OF VISIT 11/11/2016 REASON FOR VISIT Postoperative followup. SUBJECTIVE DATA Seth feels like his pain control is getting better with the Roxicodone. He used three tablets today and pain scores have been decreasing to 6 out of 10 in severity. He has been eating more today and ate 100% of lunch but not all of his dinner. OBJECTIVE VITALS: Afebrile with stable vitals on room air. GENERAL: The patient is resting but awakens easily. ABDOMEN: Soft, appropriately tender. He does have more ostomy output. His midline incision is clean, dry and intact. Drain output is serosanguineous but more serous in the bulb and did show 68 ml out yesterday. ASSESSMENT 1. Postop day #6 status post open sigmoid colon resection with end colostomy formation, lysis of adhesions, and segmental small bowel resection. 2. Diabetes mellitus - stable with diabetic diet. 3. Hypertension - chronic, stable. PLAN 1. Continue to follow oral intake. 2. He had more ostomy instruction today and Home Health is set up for tomorrow morning. 3. I think he will be ready for dismissal in the morning and can meet with Home Health and get things established tomorrow. 4. I discussed that I would try to prescribe him enough pills for 3-4 tablets of Roxicodone for the first week followed by 3 tablets a day for the second week. I said that we would reassess his pain control in clinic and determine how many more tablets may be needed to wean him off of the pain medicine over the third and fourth weeks. 5. Continue oral Tylenol and Motrin. VALENTINA
[2016-11-12 07:40] VITALS: BP 137/87; PULSE 93; RESP 16; TEMP 97.8; O2SAT 93
[2016-11-12] MEDS ORDERED: METR500T PO (08:25)
[2016-11-12] MEDS ORDERED: OXYC5TAB84 PO (08:25)
[2016-11-12] MEDS ORDERED: LEVO750T20 PO (08:25)
[2016-11-12] MEDS: DOCUSATE SODIUM 100 MG CAPSULE PO SCH (09:33)
[2016-11-12] MEDS: LINEZOLID 600 MG TABLET PO SCH (09:33)
[2016-11-12] MEDS: METRONIDAZOLE 500 MG TABLET PO SCH (09:33)
[2016-11-12] MEDS: AMLODIPINE 5 MG TABLET PO SCH (09:34)
[2016-11-12] MEDS: POLYETHYL.GLYCOL 3350 PACKET 17gm PO SCH (09:34)
[2016-11-12] MEDS: LISINOPRIL 20 MG TABLET PO SCH (09:34)
[2016-11-12] MEDS: ENOXAPARIN 40 MG/0.4 ML INJECTION SQ SCH ×2 (09:35→09:38)
[2016-11-12 10:00] VITALS: PULSE 93; RESP 16
--- NOTE | 2016-11-12 10:10 | NUR ---
DISCHARGE PT DISCHARGED TO HOME WITH HOME HEALTH. HOME HEALTH TO SEE HIM TOMORROW. PRN OXYCODONE GIVEN WITH MORNING MEDICATIONS FOR PAIN RATED 7/10. PT REFUSED LOVENOX. VS STABLE. PT ON RA. COLOSTOMY AND DRAIN TEACHING REVIEWED. PT'S QUESTIONS ANSWERED AND PT VERBALIZED UNDERSTANDING. PT WHEELED OUT ED ENTRANCE ACCOMPANIED BY AND NURSING STAFF.
--- NOTE | 2016-11-12 18:56 | PNF ---
DATE OF VISIT 11/12/2016 REASON FOR VISIT Postoperative followup. SUBJECTIVE Seth is doing well and feels like his pain is controlled. He has been eating more by mouth and feels like he is ready for dismissal. OBJECTIVE Vital signs: Afebrile with stable vitals on room air. ABDOMEN: Soft, appropriately tender. His ostomy appliance is leaking somewhat. Midline incision is clean, dry and intact. His ostomy is pink and perfused and he does have stool output. His drain has serosanguineous output. MICROBIOLOGY Wound cultures and sensitivities were reviewed. ASSESSMENT Postop day #7 status post open sigmoid colon resection with end colostomy formation, lysis of adhesions, and segmental small bowel resection - doing well. PLAN Dismiss home with home health. See discharge instructions and discharge summary. EJD
--- NOTE | 2016-11-13 09:48 | DSF ---
ATTENDING PHYSICIAN Harjeet Schmidt MD REASON FOR ADMISSION Scheduled surgery. DISCHARGE DIAGNOSES 1. Intraabdominal diverticular abscess. 2. Chronic sigmoid diverticulosis with abscess. 3. Extensive intraabdominal adhesions. 4. Serosal compromise of the small bowel incidental to his surgical procedure given the extensive nature of the inflammatory process and involvement of the small bowel with the abscess cavity. and adhesions. 5. Type 2 diabetes mellitus on oral agents. 6. Hypertension - chronic. 7. Hypercholesterolemia - chronic. PROCEDURES 1. The patient underwent open sigmoid colon resection with end colostomy formation (Arnold's procedure), lysis of adhesions x 167 minutes, segmental small bowel resection, and open mobilization of splenic flexure on 11/05/[address] Schmidt with the assistance of Dr. Corrales. 2. The patient underwent cystoscopy and bilateral ureteral catheter placement on 11/05/[address] Roberson[address] CONSULTING PHYSICIANS Dr. Marcy Reyna - Infectious Disease. BRIEF HOSPITAL COURSE The patient was admitted for scheduled surgery and underwent operations as above. The stents were placed by Dr. Roberson at the start of the case to help protect the ureters during the difficult pelvic dissection. Postoperatively the patient was transferred to the floor. He had an epidural catheter placed by the anesthesia team to help with pain control given his history of narcotic use. He was continued on IV Invanz given the abscess encountered during surgery. A drain was also placed at the time of surgery. He was started on Lovenox on postop day #1 and this was transitioned over to twice- daily dosing to allow for a break in his Lovenox for epidural removal. He was kept n.p.o. except for sips and chips originally. His catheter was continued and he did have some hematuria so his catheter was extended longer than normal. He was restarted on his home Norvasc and lisinopril as well as pravastatin. His fluconazole was continued by mouth as a prophylactic antifungal. The patient's epidural catheter was stopped on postop day #2 and he was switched over to a NUCLEAR DESIGN ENGINEER. His IV fluids were decreased. His blood glucose was followed throughout the hospitalization and was normal with diet control only. On postop day #3 he continued to have some hematuria so his Whatley was left in place. He was advanced to noncarbonated clear liquids. On postop day #4 Dr. Marcy Reyna had been contacted for recommendations and the patient was started on vancomycin. He continued to have some hematuria which kept his Whatley in place. He was still on a clear liquid diet and a NUCLEAR DESIGN ENGINEER for pain control. On postop day #5 Dr. Reyna came by to consult on the patient and he was switched to oral linezolid, Levaquin, and Flagyl. His IV antibiotics were discontinued. His midline had infiltrated as well as his IV site so they were both removed. The patient did not want an additional IV site so his IV fluids were stopped and oral intake was encouraged. His Whatley catheter did clear up so his catheter was removed. He was started on oral oxycodone. He had previously been on scheduled Tylenol. Arrangements were made for home health. On postop day #6 the patient continued to work with his ostomy and the nursing staff. He continued to work on oral pain control with Tylenol, Motrin, and Roxicodone. He was gradually eating more by mouth and blood sugars did remain stable as he was advanced to a diabetic diet. On postop day #7 the patient was doing well and was ready for hospital dismissal. DISPOSITION Home by private vehicle. CONDITION ON DISCHARGE Good. DISCHARGE INSTRUCTIONS Diet: Regular diabetic diet as tolerated. Activity: No heavy lifting over 15 pounds for a month following surgery. Wound care: The patient was set up with [employer] ostomy supplies. He can leave his incision open to air. He should empty his drain three times a day and record the output. Followup: The patient should follow up in 7-10 days for staple removal. MEDICATIONS See discharge medical reconciliation. VALENTINA
== END 2016-11-12 10:10 | disposition home health service (06) | DRG 330 ==
LOC: SRG 05:46
PROVIDERS: ADMIT Surgery; ATTEND Surgery
PROC: 0DNW0ZZ Release Peritoneum, Open Approach (ICD-10-PCS; 2016-11-05)
PROC: 0DB80ZZ Excision of Small Intestine, Open Approach (ICD-10-PCS; 2016-11-05)
PROC: 0T9880Z Drainage of Bilateral Ureters with Drainage Device, Via Natural or Artificial Opening Endoscopic (ICD-10-PCS; 2016-11-05)
PROC: 0DTN0ZZ Resection of Sigmoid Colon, Open Approach (ICD-10-PCS; principal; 2016-11-05 07:54)
PROC: 0D1M0Z4 Bypass Descending Colon to Cutaneous, Open Approach (ICD-10-PCS; 2016-11-05 07:54)
DX: K57.20 Diverticulitis of large intestine with perforation and abscess without bleeding (principal); K91.81 Other intraoperative complications of digestive system; F17.210 Nicotine dependence, cigarettes, uncomplicated; E11.9 Type 2 diabetes mellitus without complications; I10 Essential (primary) hypertension; E78.00 Pure hypercholesterolemia, unspecified; N35.9 Urethral stricture, unspecified; K66.0 Peritoneal adhesions (postprocedural) (postinfection); R31.9 Hematuria, unspecified; G89.29 Other chronic pain; M54.9 Dorsalgia, unspecified; B95.2 Enterococcus as the cause of diseases classified elsewhere; Z98.1 Arthrodesis status; Z79.899 Other long term (current) drug therapy; Z79.82 Long term (current) use of aspirin
CPT/HCPCS: 36415; 80048; 82948; 85025; 86850; 86900; 86901; 87070; 87075; 87076; 87077; 87181; 87186; 87205; 88307

== ENCOUNTER → 2016-11-21 | Outpatient (CLI) | payer MEDICARE ==
[~2016-11-21] MED LIST changes: -ERTA1VIA IV; -FLUC200T8 PO; -HYDR-4072 PO; +IOHEXOL 300 MG/ML 100ml INJECTION ONE; +LEVO750T20 PO; +METR500T PO; +NORMAL SALINE 100 ML ONE; +OXYC5TAB84 PO; +SALINE FLUSH 10ml SYRINGE ONE
--- NOTE | 2016-11-21 08:34 | DI ---
Indication: ITS.REASON: K65.1 PERITONEAL ABSCESS PROCEDURE: CT ABD/PELVIS W/CONTRAST ONLY: Encounter: Initial Comparison: October 24, 2016 Technique: Axial CT images were performed through the abdomen and pelvis after the administration of intravenous contrast. Coronal and sagittal two-dimensional reformats. Automated Exposure Control and Iterative Reconstruction dose reducing techniques were utilized. Contrast: Omnipaque 300 100 mL Findings: The liver is stable. No bile duct dilatation or focal liver lesion. The gallbladder, spleen, pancreas and adrenal glands are within normal limits. The kidneys are normal. No abdominal or pelvic lymphadenopathy. Surgical drain again seen looping within the pelvis. Interval surgery with anastomosis in the pelvic bowel. Bladder appears grossly normal. Distal colonic resection with a Simental pouch and end colostomy. No free air or bowel obstruction. The prior area of rim-enhancing abscess along the superior margin of the bladder is no longer identified. No new rim-enhancing fluid collection or abscess. Bone windows are unchanged. Impression: Interval postoperative changes with distal colectomy. No evidence of residual or undrained abscess. .
== END ==
LOC: IMA 07:47
PROVIDERS: ATTEND Surgery
DX: K65.1 Peritoneal abscess (principal); Z90.49 Acquired absence of other specified parts of digestive tract; Z93.3 Colostomy status
CPT/HCPCS: 74177; J7050; Q9967

== ENCOUNTER 2017-04-08 07:30 | Inpatient (IN) ==
--- OUTSIDE RECORDS SUMMARY | 2017-04-22 06:07 | External Medical Summary ---
:1975 Author Organization [facility] Address [address] [place] [address] Care Team Providers Name Role Phone Laurent Champagne Unavailable Unavailable PROBLEMS Type Condition ICD9-CM XLW29-CX Onset Condition SNOMED Code Code Code Dates Status Problem Diverticulosis of K57.90 Active 67353903 intestine, part unspecified, without perforation or abscess without bleeding Problem Essential I10 Active 16805178 (primary) hypertension Assessment Diverticulosis of K57.90 Jul, Active 14520350 intestine, part 2015 unspecified, without perforation or abscess without bleeding ALLERGIES Substance Reaction Event Type Date Status [...] Date End Date Duration Status Lisinopril 10 Orally Once a day 1 tablet 24h 30 days Active MG RESULTS No Results PROCEDURES Procedure Date Ordered Related Diagnosis Body Site PENDING SALE TO [facility] visit Established Patient Jul 23, 2016 [facility]END[facility] S[facility] visit Annual Exam Jul 23, 2016 Preventive Care New Pt. Age 40-64 Jul 23, 2016 IMMUNIZATIONS No Known Immunizations
--- OUTSIDE RECORDS SUMMARY | 2017-04-22 06:07 | External Medical Summary | Referral Summary ---
:1975 Author Organization [facility] Address [address] [place] [address] Care Team Providers Name Role Phone No PCP, Pt States Primary Care Physician Encounter VC Date(s): 07/07/16 - 07/09/16 [facility] [address] [place] [address] Discharge Diagnosis: Diverticulitis Discharge Disposition: 01-Home or Self Care Attending Physician: Seth Orozco MD Admitting Physician: Seth Orozco MD Vital Signs Most recent to oldest [Reference Range]: 1 Temperature Oral [35.8-37.3 degC] 37.2 degC (07/09/16 3:53 PM) Peripheral Pulse Rate [60-100 bpm] 89 bpm (07/08/16 8:00 PM) Heart Rate Monitored [60-100 bpm] 82 bpm (07/09/16 3:53 PM) Respiratory Rate [14-20 br/min] 20 br/min (07/09/16 3:53 PM) Blood Pressure [90-140/60-90 mmHg] 126/81 mmHg (07/09/16 3:53 PM) Mean Arterial Pressure, Cuff 121 mmHg (07/08/16 6:55 AM) SpO2 95 % (07/09/16 3:53 PM) Problem List Condition Effective Dates Status Health Status Informant Acute pain(Confirmed) Resolved At risk for infection(Confirmed)1 Resolved Hypertension(Confirmed) Active patient Depression(Confirmed) Active patient Obesity(Confirmed) Active patient 1Problem added automatically by system based on initiation of At Risk for Infection in Nutrition Planof Care Allergies, Adverse Reactions, Alerts No Known Allergies Medications Ceftin 500 mg oral tablet 500 mg 1 tabs, Oral, BID, # 28 tabs, 0 Refill(s) Start Date: 07/09/16 Stop Date: 07/23/16 Status: OrderedCommunication Patient transfered from another hospital. Refer to records for current med list and last doses. Patient states they do not take any medications at home, 0 Refill(s) Start Date: 07/07/16 Status: OrderedFlagyl 500 mg oral tablet 500 mg 1 tabs, Oral, BID, # 28 tabs, 0 Refill(s) Start Date: 07/09/16 Stop Date: 07/23/16 Status: OrderedoxyCODONE-acetaminophen 7.5 mg-325 mg oral tablet 2 tabs, Oral, q4hr, Pain Moderate (4-6), # 20 tabs, 0 Refill(s), other reason ( Rx) Start Date: 07/09/16 Stop Date: 08/08/16 Status: Ordered Results Hematology Most recent to oldest [Reference Range]: 1 WBC [4.8-10.8 10*3/uL] 9.2 10*3/uL (07/09/16 1:53 PM) RBC [4.60-6.20] 4.99 (07/09/16 1:53 PM) Hgb [14.0-18.0 gm/dL] 15.1 gm/dL (07/09/16 1:53 PM) Hct [42.0-52.0 %] 44.0 % (07/09/16 1:53 PM) MCV [82.0-99.0 fL] 88.2 fL (07/09/16 1:53 PM) MCH [27.0-32.0 pg] 30.3 pg (07/09/16 1:53 PM) MCHC [32.0-36.0 gm/dL] 34.3 gm/dL (07/09/16 1:53 PM) RDW [11.5-14.5 %] 13.1 % (07/09/16 1:53 PM) Platelet [150-400 10*3/uL] 274 10*3/uL (07/09/16 1:53 PM) MPV [9.4-12.3 fL] 10.3 fL (07/09/16 1:53 PM) Immature Granulocytes [0.0-1.0 %] 0.6 % (07/08/16 5:45 AM) Neutrophils [51-75 %] 61 % (07/08/16 5:45 AM) Lymphocytes [20-46 %] 24 % (07/08/16 5:45 AM) Monocytes [4-11 %] 11 % (07/08/16 5:45 AM) Eosinophils [0-4 %] 2 % (07/08/16 5:45 AM) Basophils [0-2 %] 1 % (07/08/16 5:45 AM) Neutro Absolute [1.90-7.00 10*3] 6.18 10*3 (07/08/16 5:45 AM) Lymph Absolute [0.80-3.30 10*3] 2.41 10*3 (07/08/16 5:45 AM) [place] Absolute [0.30-1.00 10*3] 1.11 10*3 *HI* (07/08/16 5:45 AM) Eos Absolute [0.00-0.50 10*3] 0.22 10*3 (07/08/16 5:45 AM) Baso Absolute [0.00-0.20 10*3] 0.08 10*3 (07/08/16 5:45 AM) Nucleated RBC Automated [0 /100 WBC] 0.0 /100 WBC (07/08/16 5:45 AM) Chemistry Most recent to oldest [Reference Range]: 1 Sodium Lvl [136-144 mEq/L] 136 mEq/L (07/08/16 5:45 AM) Potassium Lvl [3.6-5.1 mEq/L] 3.7 mEq/L (07/08/16 5:45 AM) Chloride [99-109 mEq/L] 101 mEq/L (07/08/16 5:45 AM) CO2 [22-32 mEq/L] 26 mEq/L (07/08/16 5:45 AM) AGAP [3-20] 9 (07/08/16 5:45 AM) BUN [4-20 mg/dL] 4 mg/dL (07/08/16 5:45 AM) Glucose Lvl [70-100 mg/dL] 102 mg/dL *HI* (07/08/16 5:45 AM) Creatinine Lvl [0.64-1.27 mg/dL] 0.85 mg/dL (07/08/16 5:45 AM) eGFR [>60] >60 1 (07/08/16 5:45 AM) Calcium Lvl [8.6-10.0 mg/dL] 9.0 mg/dL (07/08/16 5:45 AM) 1Result Comment: Multiply eGFR results by 1.21 for race. Immunizations No data available for this section Procedures No data available for this section Social History Social History Type Response Smoking Status Current every day smoker Assessment and Plan No data available for this section
--- OUTSIDE RECORDS SUMMARY | 2017-04-22 06:07 | External Medical Summary | Referral Summary ---
:[address] [facility] Address [address] [place] [address] Care Team Providers Name Role Phone Laurent Champagne Primary Care Physician Encounter [facility] [id number] Date(s): 09/02/16 - 09/02/[address] [facility] [address] [place] [address] [phone] Discharge Disposition: 01-Home or Self Care Attending [...]
--- OUTSIDE RECORDS SUMMARY | 2017-04-22 06:07 | External Medical Summary | Summary of Care ---
:1975 Author Name Rajat Roberson M.D. Address [address] [place] [address] [place] [address] Care Team Providers Name Role Phone Rajat Roberosn M.D. Unavailable Unavailable Harjeet Schmidt Unavailable Unavailable Functional Status Functional Status Health Issues Name Dates Details Functional status health issues are not documented Status: Cognitive Status Health Issues Name Dates Details Cognitive status health issues are not documented Status: Problems Name Dates Details Diverticulitis of rectosigmoid (562.11, K57.32) Status: Active Medications Name Dates Details Medication not documented Allergies and Adverse Reactions Name Dates Details Allergy history not documented Status: Procedures Procedure Dates Details Procedures not documented Immunization Name Dates Details Immunizations not documented Social History Smoking Status Name Dates Details Unknown if ever smoked Vital Signs Date Test Result Details No Known Vitals to report Results Date Description Value Details Results not documented Plan of Care Name Dates Details Planned Observations Planned Goals not documented Planned Encounters Appointment; Provider: Rajat Roberson M.D. On 05-Nov-2016 08:00 Instructions Name Dates Details Instructions not documented Encounters Appointment; Rajat Roberson M.D. On 05-Nov-2016 Encounter Diagnosis: Problem not documented 08:00
--- OUTSIDE RECORDS SUMMARY | 2017-04-22 06:07 | External Medical Summary ---
:1975 Author Organization [facility] Address [address] [place] [address] Care Team Providers Name Role Phone DaphneLaurent quevedo Unavailable Unavailable PROBLEMS Type Condition ICD9-CM Code [id number] Onset Condition SNOMED Code Code Dates Status Problem Diverticulosis of K57.90 Active 41835068 intestine, part unspecified, without perforation or abscess without bleeding Problem Essential (primary) I10 Active 78735573 hypertension ALLERGIES Unknown Allergies SOCIAL HISTORY No smoking Hx information available PLAN OF CARE VITAL SIGNS MEDICATIONS Medication Instructions Dosage Frequency Start Date End Date Duration Status Lisinopril 10 Orally Once a day 1 tablet 24h 30 days Active MG RESULTS No Results PROCEDURES No Known procedures IMMUNIZATIONS No Known Immunizations
--- OUTSIDE RECORDS SUMMARY | 2017-04-22 06:07 | External Medical Summary | Referral Summary ---
:1975 Author Organization [facility] Address [address] [place] [address] Care Team Providers Name Role Phone Laurent Champagne Primary Care Physician Encounter VC Date(s): 09/15/16 - 09/15/16 [facility] [address] [place] [address]- [place] Discharge Disposition: 01-Home or Self Care Attending Physician: Roopa Lorenzo MD Admitting Physician: Roopa Lorenzo MD Vital Signs Most recent to oldest [Reference Range]: 1 Temperature Oral [35.8-37.3 degC] 36.4 degC (09/15/16 1:24 PM) Peripheral Pulse Rate [60-100 bpm] 88 bpm (09/15/16 1:24 PM) Respiratory Rate [14-20 br/min] 24 br/min *HI* (09/15/16 1:24 PM) Blood Pressure [90-140/60-90 mmHg] 148/80 mmHg *HI* (09/15/16 1:24 PM) Problem List Condition [...] Daily, 0 Refill(s) Start Date: 09/15/16 Status: OrderedCipro 500 mg oral tablet 500 mg 1 tabs, Oral, BID, X 14 days, # 28 tabs, 0 Refill(s), other reason (Rx) Start Date: 09/04/16 Stop Date: 09/18/16 Status: OrderedCommunication Patient transfered from another hospital. Refer to records for current med list and last doses. Patient states they do not take any medications at home, 0 Refill(s) Start Date: 07/07/16 Status: OrderedFlagyl 500 mg oral tablet 500 mg 1 tabs, Oral, BID, X 14 days, # 28 tabs, 0 Refill(s), other reason (Rx) Start Date: 09/04/16 Stop Date: 09/18/16 Status: Orderedlisinopril 20 mg oral tablet mg tabs, Oral, Daily, 0 Refill(s) Start Date: 09/15/16 Status: OrderedPercocet 5/325 oral tablet 1-2 tabs, Oral, q4hr, as needed for pain, # 50 tabs, 0 Refill(s), other reason ( Rx) Start Date: 09/04/16 Stop Date: 07/10/17 Status: Orderedpravastatin 20 mg oral tablet mg tabs, Oral, [...] Lorenzo. I discussed the patient with the Resident/BUSINESS PROCESS EXPERT/PA/RN/PharmD, reviewed the chart, and concur with the assessment and plan as above.
[2017-04-22 06:33] VITALS: BMI 29.5
[2017-04-22] MEDS: LR 1,000 ML IV SCH ×6 (06:44→17:16)
--- NOTE | 2017-04-22 07:06 | Anesthesia Preoperative Report ---
Anesthesia Preoperative Record - Date and Time Date: 04/22/17 Preoperative Diagnosis: Colostomy reversal Z43.3 Proposed Procedure: Colostomy reversal NPO Since Date: 04/22/17 NPO Since Time: 00:00 Allergies/Adverse Reactions: Allergies Allergy/AdvReac Type Severity Reaction Status Date / Time No Known Allergies Allergy Verified 04/22/17 06:17 - Vital Signs Vital Signs: Temperature 98.0 F 04/22/17 06:31 Pulse Rate 84 04/22/17 06:31 Respiratory Rate 18 04/22/17 06:31 Blood Pressure 159/95 H 04/22/17 06:31 Pulse Oximetry 84 L 04/22/17 06:31 Height and Weight: Height 1.77 m Weight 92.1 kg Body Mass Index 29.5 - Medications Inpatient Medications: Current Medications Ertapenem 1 g/ Sodium Chloride 100 mls @ 200 mls/hr IV PREOP ONE Stop: 04/22/17 17:05 Lactated Ringer's (Lactated Ringers) 1,000 mls @ 125 mls/hr IV .Q8H DALILA Last Admin: 04/22/17 06:44 Dose: 125 mls/hr Lidocaine HCl (Xylocaine-Mpf 1% Vial) 1 mg ID O ONE Stop: 04/22/17 16:35 Last Admin: 04/22/17 06:44 Dose: Not Given Home Medications: Home Medications Medication Instructions Recorded Confirmed Type Aspirin 81 mg PO DAILY #0 09/19/16 04/22/17 History Lisinopril [Prinivil] 10 mg PO DAILY 04/21/17 04/22/17 History Oxycodone/APAP 10/325 [Percocet 1 tab PO Q4H PRN 04/22/17 04/22/17 History 10/325] Pravastatin [Pravachol] 10 mg PO HS 04/22/17 04/22/17 History Is Patient on Beta Evelyn?: No - Medical History Cardiovascular: Reports: Hypertension, High Cholesterol Renal/Endocrine: Reports: Diabetes Mellitus Type 2 (Diet controlled) - Surgical History HEENT Surgeries: Reports: Ear Surgery (tubes x 10 sets/reconstruction right side ear drum x 2) GI Surgery/Treatments: Reports: Appendectomy, Colon Resection, Hernia Repair Musculoskeletal Surgery/Tx: Reports: Carpal Tunnel Release, Knee Arthroscopy ( BILATERAL), Shoulder Arthroscopy (left labrum x 2/left scar tissue removal), Other (LUMBAR SURGERY/left elbow surgery, nerve moved) Anesthesia Reactions: None Hx Family Anesthesia Reaction: No History of Motion Sickness: No - Social History Smoking Status: Current every day smoker packs per day: 0.5 Pack-years: 23 Hx Chewing Tobacco Use: No Second Hand Exposure: No Substance Use Type: does not use Alcohol Intake Frequency: a few times a month - Pertinent Findings Laboratory: CBC and BMP 04/22/17 06:19 BMP 04/22/17 06:19 Sodium 143 Potassium 4.0 Chloride 105 Carbon Dioxide 25 BUN 14.0 Creatinine 0.9 Glucose 117 H Calcium 9.6 EKG Rhythm: Normal Sinus Rhythm - Physical Exam Respiratory Exam: Present: lungs clear Cardiovascular Exam: Present: regular rate and rhythm - Airway Assessment Mallampati Score: II TMD: 3 Fingerbreadths Teeth: poor dentation (Missing/chipped teeth upper and lower) Overall Assessment: may be difficult mask vent, may be difficult intubation - ASA ASA Score: 2 - Plan Anesthesia: General Inhalation Gases - Discussion Discussion: Discussed risks/options/alternatives of anesthesia and questions answered. Patient consents. Nursing pain assessment noted. Present for Discussion: family member Attestation Statement: Prior to the delivery of any anesthetic medication, I examined the patient, developed the plan, obtained the patient's consent and discussed the risk and benefits of the procedure with the patient/guardian. - Additional Information Seen by Anesthesia: Yes
[2017-04-22] MEDS ORDERED: MIDAZOLAM 2mg/2ml INJECTION IVP ONE (07:15)
[2017-04-22] MEDS ORDERED: SCOPOLAMINE 1.5 MG PATCH TD ONE (07:15)
[2017-04-22] MEDS ORDERED: PROPOFOL 20 ML ONE ×2 (07:22→14:13)
[2017-04-22] MEDS ORDERED: LIDOCAINE 2% (100mg/5mL) PF 5ml vl ONE (07:22)
[2017-04-22] MEDS ORDERED: ROCURONIUM 50 MG/5 ML INJECTION IVP ONE (07:23)
[2017-04-22] MEDS ORDERED: FentaNYL 100 MCG/2 ML INJECTION ONE ×3 (07:23→15:07)
[2017-04-22] MEDS ORDERED: VECURONIUM 10 MG/10 ML VIAL IV ONE (07:57)
[2017-04-22] MEDS ORDERED: HYDROMORPHONE 2 MG/ML INJECTION ONE (08:27)
[2017-04-22] MEDS ORDERED: DESFLURANE 240ml LIQUID IH ONE (11:48)
[2017-04-22] MEDS ORDERED: DEXAMETHASONE 4 MG/ML INJECTION ONE (12:26)
[2017-04-22] MEDS ORDERED: ONDANSETRON 4 MG/2 ML INJECTION ONE (12:26)
[2017-04-22] MEDS ORDERED: GLYCOPYRROLATE 0.4 MG/2 ML INJECTION ONE (12:26)
[2017-04-22] MEDS ORDERED: NEOSTIGMINE 10 MG/10 ML INJECTION ONE (12:26)
[2017-04-22] MEDS ORDERED: ACETAMINOPHEN IV 1,000 MG/100 ML VIAL IV ONE (12:30)
[2017-04-22] MEDS ORDERED: INDOCYANINE GREEN 25mg INJECTION ONE (12:44)
[2017-04-22] MEDS: INDOCYANINE GREEN 25mg INJECTION IVP ONE ×3 (12:48→13:24)
[2017-04-22] MEDS ORDERED: SALINE FLUSH 10ml SYRINGE ONE ×2 (12:55→13:26)
[2017-04-22] MEDS ORDERED: SUGAMMADEX 200mg/2ml INJECTION IVP ONE (14:03)
--- NOTE | 2017-04-22 14:34 | Operative Note ---
DATE OF OPERATION 04/22/2017 PREOPERATIVE DIAGNOSIS Presence of colostomy for abdominal abscess. POSTOPERATIVE DIAGNOSIS Presence of colostomy for abdominal abscess. OPERATION PERFORMED Cystoscopy and bilateral ureteral catheter insertion. SURGEON Rajat Roberson MD ANESTHESIA General INDICATION Mr. Barragan is a 41-year-old with the history of extensive abdominal abscess from diverticulitis. He had diverting colostomy and he is here for colostomy reversal by Dr. Schmidt. I was asked to place the ureteral catheters to prevent potential ureteral injury during the operation for easy identification of the ureters. DESCRIPTION OF PROCEDURE The patient was under general anesthesia in dorsal lithotomy position. He was prepped and draped in the usual fashion for a cystoscopic procedure. A 23 Chinese rigid cystoscope was inserted into the bladder under direct vision. A guidewire was placed in the right ureter, advanced into the renal pelvis. Over this guidewire, a clear Iris ureteral catheter was placed to a little over 20 cm. The same thing was done into the left ureter utilizing double bridge. Cystoscope was then removed over the ureteral catheters. Lighting component of the Iris ureteral catheter was then inserted into both ureteral sheaths. A 16- Chinese Whatley catheter was then inserted into the bladder. The ureteral catheters and Whatley catheter were tied together with silk ligatures. Drainage bags were attached. Case was then turned over to Dr. Schmidt for colostomy reversal. The patient tolerated the procedure well. [facility]
[2017-04-22] MEDS ORDERED: METOCLOPRAMIDE 10mg/2ml INJECTION IVP PRN (14:44)
[2017-04-22] MEDS ORDERED: HYDROMORPHONE 2 MG/ML INJECTION IVP PRN ×2 (14:44→16:58)
[2017-04-22] MEDS ORDERED: KETOROLAC 15 MG/ML INJECTION IVP ONE (15:49)
[2017-04-22] MEDS ORDERED: KETOROLAC 30 MG/ML INJECTION IVP PRN ×2 (15:52→16:58)
--- NOTE | 2017-04-22 16:04 | General Surgery Procedure Note ---
Date of Procedure: 04/22/17 Surgeon: Roxana Soft Work Wrapper Layer And Examiner: Antoni Anesthesia: General Inhalation Gases ASA Score: 2 Postoperative Diagnosis: Hx of diverticulitis with abscess, colostomy with desired reversal Procedure: Exploratory laparotomy, lysis of adhesions x 150 minutes, End colostomy takedown with coloproctostomy, repair of multiple small incisional hernias
--- NOTE | 2017-04-22 16:25 | Anesthesia Postoperative Note ---
- Date and Time Date: 04/22/17 Time: 15:48 - Status Patient Participated in Evaluation: Patient Participated in Person Vital Signs: Temperature 98.0 F 04/22/17 06:31 Pulse Rate 84 04/22/17 07:34 Respiratory Rate 21 04/22/17 07:39 Blood Pressure 141/89 H 04/22/17 07:39 Pulse Oximetry 96 04/22/17 07:39 Respiratory Function: Airway Patent, Regular Respirations Cardiovascular Function: Regular Pulse Mental Status: Alert and Oriented Pain Intensity: 10 (patient sleeps comfortably until arouse, pain 10 after aroused.) Hydration: IV Infusing Complications During Recover: None Apparent - Follow-Up Instructions Instructions: Per Surgeon
[2017-04-22] MEDS ORDERED: LIDOCAINE 1% (10mg/ml) 2mL INJ PF SDV ID ONE (16:34)
[2017-04-22] MEDS ORDERED: ERTAPENEM 1 G in NS 100 ML IV ONE (16:36)
[2017-04-22] MEDS: HYDROMORPHONE PCA 30mg/30ml VIAL IV PRN (17:16)
[2017-04-23] MEDS: LR 1,000 ML IV SCH ×3 (01:31→18:40)
[2017-04-23] MEDS ORDERED: ERTAPENEM 1 G in NS 100 ML IV ONE (07:00)
[2017-04-23] MEDS: ENOXAPARIN 40 MG/0.4 ML INJECTION SQ SCH (09:00)
[2017-04-23] MEDS: LISINOPRIL 10 MG TABLET PO SCH (09:01)
[2017-04-23] MEDS: AMLODIPINE 5 MG TABLET PO SCH (09:01)
--- NOTE | 2017-04-23 09:06 | Operative Note ---
DATE OF OPERATION 04/22/2017 SURGEON Harjeet Schmidt MD MANAGER OF ENTERPRISE Momo Corrales MD PREOPERATIVE DIAGNOSES 1. Personal history of diverticulitis with intraabdominal abscess status post Arnold's procedure. 2. End colostomy with desire for reversal. POSTOPERATIVE DIAGNOSES 1. Personal history of diverticulitis with intraabdominal abscess status post Arnold's procedure. 2. End colostomy with desire for reversal. 3. Extensive intraabdominal adhesions. 4. Multiple small incisional hernias. 5. Parastomal hernia containing omentum. PROCEDURE 1. Exploratory laparotomy. 2. Lysis of adhesions x 150 minutes. 3. End colostomy takedown with coloproctostomy via circular end-to-end stapled anastomosis. 4. Primary repair of multiple small incisional hernias. ANESTHESIA General. ASA CLASS 2 INDICATIONS The patient is a 41-year-old male who had developed sigmoid diverticulitis in September 2016. He ultimately ended up having a Arnold's procedure at the end of October when laparoscopy converted to laparotomy with drainage of intraabdominal abscess was unsuccessful. He presented to the clinic desiring colostomy reversal which was offered to him following discussion. FINDINGS There were significant intraabdominal adhesions, especially within the pelvis around the rectal stump. There were multiple interloop adhesions of the small bowel and omental adhesions to the undersurface of the anterior abdominal wall. Fluorescence imaging was able to delineate the level of perfused bowel of the segment of the descending colon just proximal to his colostomy site. The lighted stents placed at the beginning of the procedure by Dr. Roberson were also helpful in locating both ureters but especially the right ureter which was located within dense adhesions along the right pelvic sidewall and right lower quadrant. There were three small incisional hernias which extended from just below the umbilicus up to within a few centimeters superior to the umbilicus. These were located more cranial than the needed incision, but the incision was extended superiorly with the purpose of performing a primary repair of the hernia defects. Mesh repair was not possible given the contaminated nature of the case. DESCRIPTION OF PROCEDURE After informed consent was obtained the patient was taken to the operating room and placed in lithotomy position. Dr. Roberson performed a cystoscopy with placement of ureteral stents including light sources for use with the [employer] camera. See Dr. Roberson's separate operative note. Following conclusion of Dr. Roberson's case, the patient's ostomy was closed with a running 2-0 silk suture. The patient's abdomen was then prepped with Betadine around the colostomy site and ChloraPrep for the remainder of the abdomen. He was positioned in low lithotomy position. The patient's lower midline incision was then reopened with a 10-blade scalpel. The old scar tissue was excised. Electrocautery was used to dissect down through the subcutaneous tissue to the level of the fascia and the fascia was divided. The peritoneum was then entered with Metzenbaum scissors until a finger could be inserted and then the fascia was divided over a finger with cautery once intraabdominal contents were swept out from beneath the fascia. When the incision was completed, a finger sweep superiorly had revealed three incision hernia defects, so the fascial incision was extended cranially with the purpose of including these in closure. The superior-most end of the prior incision did not have any fascial defects and was left intact. A wound protector was inserted to protect the subcutaneous layer during the operation. A Bookwalter retractor was also added once appropriate adhesiolysis had been performed. Significant adhesiolysis was performed with Metzenbaum scissors and electrocautery. [id number]-half hours of total time was spent during the case solely on adhesiolysis. When the small bowel was freed from the pelvis, attention was turned to dissecting out the rectal stump. During this portion of the operation, the Smart Panel Advanced Imaging Modality was used to visualize the course of both the right and left ureter. The ureteral stents were also able to be palpated and eery effort was made to protect the ureters throughout the remainder of the case. There was difficulty in dissecting out the rectal stump to the point that Dr. Corrales went below and inserted an EEA sizer up to the end of the rectal stump. Even with this in position, it was still difficult to dissect out the rectal stump. Further tedious dissection was performed until the mesentery could be cleared posteriorly and the serosa cleared anteriorly. Once circumferential dissection was finally achieved, the scarred end of the rectal stump was excised with firing of the contour stapler. Hemostasis within the pelvis was assured. Attention was turned to the takedown of the end colostomy. The mucocutaneous junction was excised with a rim of a few millimeters of skin and electrocautery was used to dissect down into the subcutaneous tissue. Dissection was continued along the serosal surface of the colon. The wound protector had to be removed during this portion of the operation because of its interference with the area of dissection. The parastomal hernia was noted and the greater omentum was reduced from the hernia sac. The colostomy was oversewn again due to some spillage with the manipulation of the bowel. Further dissection was performed until the colostomy could be fully mobilized into the abdominal cavity. The sac of the parastomal hernia was excised to help prevent seroma formation. The Advanced Imaging Modality was used with indocyanine green to check for perfusion of the distal segment and after dissection there was the distal end of the bowel that did not show excellent perfusion. The area of adequate perfusion was marked with a serosal stitch of 3-0 Vicryl. The bowel was cleared down to this level and a Derrick clamp was placed across the bowel at the level of the transition of perfusion. It was cut proximal to this with a scalpel. The smallest EEA sizer would not fit within the bowel, so it was determined that only a 25-mm EEA stapler should be utilized. The anvil of the stapler was inserted into the bowel carefully and the end of the bowel was secured around the post of the anvil with a pursestring suture of 3-0 PDS. Perfusion was again checked and was noted to be adequate at the distal end of the descending colon. The perfusion of the rectal stump was also checked and was found to be adequate. The end of the descending colon did reach the pelvis with no tension. A medium EEA sizer was then advanced up to the top of the rectal stump followed by the 25 mm EEA stapler. The post of the stapler was extended just anterior to the staple line of the rectal stump and the anvil was secured to the end of the post with care to avoid any twisting of the mesentery. The stapler was then closed and fired. Both donuts appeared to be full-thickness and intact upon checking. A rigid proctoscope was inserted and was used to insufflate the colon in the area of the anastomosis. No bubbling was noted in the pelvis which had been filled with fluid. With the anastomosis complete, attention was turned to closure of the abdominal wall incorporating the incisional hernia defects. The entire surgical team changed gowns and gloves and the patient's abdomen was redraped. New equipment was used. The anterior rectus fascia was closed with a running #1 PDS suture in the area of the patient's prior ostomy. The posterior rectus fascia was also closed from inside the abdominal cavity with #1 PDS suture. With the colostomy site closed, the midline incision was closed with a running #1 PDS suture at the fascial level. The fascial edges were cleared by dividing some of the subcutaneous fat just superficial to the fascia to be sure that appropriate bites were being taken. The umbilical stalk was also divided with cautery. Once the fascia was closed, the knot of the suture was tacked to the fascia using a 3-0 Vicryl suture. The subcutaneous tract that had extended from the ostomy site to the midline wound was closed with a running 3-0 Vicryl suture. The umbilicus was tacked down to the level of fascia with a figure-of- eight stitch of 3-0 Vicryl. The skin incisions were both closed with a widely spaced pairs of cale. Telfa pooja were placed between the pairs of cale. An overlying dressing was placed. The patient tolerated the procedure well. Dr. Corrales was present throughout the entire procedure and offered critical assistance with exposure via retraction and creation of the anastomosis. VALENTINA
[2017-04-23] MEDS: METOCLOPRAMIDE 10mg/2ml INJECTION IVP PRN (15:49)
[2017-04-23] MEDS: ACETAMINOPHEN 500 MG TABLET PO SCH (21:38)
[2017-04-24] MEDS: ONDANSETRON 4 MG/2 ML INJECTION IVP PRN ×2 (02:45→21:33)
[2017-04-24] MEDS: LR 1,000 ML IV SCH ×3 (03:00→20:54)
[2017-04-24] MEDS: ACETAMINOPHEN 500 MG TABLET PO SCH ×3 (06:11→20:54)
[2017-04-24] MEDS: AMLODIPINE 5 MG TABLET PO SCH (09:40)
[2017-04-24] MEDS: ENOXAPARIN 40 MG/0.4 ML INJECTION SQ SCH (09:40)
[2017-04-24] MEDS: LISINOPRIL 10 MG TABLET PO SCH (09:40)
[2017-04-25] MEDS: METOCLOPRAMIDE 10mg/2ml INJECTION IVP PRN (04:48)
[2017-04-25] MEDS: LR 1,000 ML IV SCH ×5 (05:59→14:25)
[2017-04-25] MEDS: ACETAMINOPHEN 500 MG TABLET PO SCH ×3 (06:00→22:17)
[2017-04-25] MEDS ORDERED: SCOPOLAMINE PATCH REMOVAL TD SCH (07:45)
[2017-04-25] MEDS: AMLODIPINE 5 MG TABLET PO SCH (09:29)
[2017-04-25] MEDS: ENOXAPARIN 40 MG/0.4 ML INJECTION SQ SCH (09:29)
[2017-04-25] MEDS: LISINOPRIL 10 MG TABLET PO SCH (09:29)
--- NOTE | 2017-04-25 12:14 | Progress Note ---
DATE OF VISIT 04/24/2017 REASON FOR VISIT Postoperative followup. SUBJECTIVE Seth says his pain control is okay. He has been using his PAN PULLER regularly. He did walk twice today but not the four times was prescribed. He is not wanting his Anthony catheter removed yet. He denies any flatus. He has not had any nausea or vomiting with the clear liquids that he has been taking. OBJECTIVE VITAL SIGNS: Afebrile with stable vitals. GENERAL: The patient is awake, alert, in no acute distress. ABDOMEN: Soft, appropriately tender. His dressing was changed and he did have some serosanguineous drainage saturating his ABD and the Telfa pooja. His overlying dressing of Telfa and an ABD was also changed. All of his pooja were withdrawn and trimmed back approximately 1 cm. GENITOURINARY: His Anthony does have some mild hematuria. LABORATORY DATA White blood cell count is improved. IMPRESSION Postop day #2 status post exploratory laparotomy with lysis of adhesions and takedown of end colostomy with coloproctostomy - appropriate clinical progress. PLAN 1. Advance to full liquid diet in the morning. 2. Continue PAN PULLER until oral intake is better and oral pain regimen can be established. 3. Keep anthony for now due to mild hematuria and pelvic surgery 4. Continue to follow progress. MTDD
--- NOTE | 2017-04-25 14:31 | Progress Note ---
DATE OF VISIT 04/25/2017 REASON FOR VISIT Postoperative followup. SUBJECTIVE DATA Seth is doing okay this morning. He is continuing to use his SOX ANALYST for pain control. He does feel that he has fairly significant pain with coughing. He has ambulated once so far today. He is tolerating the full liquid diet well but is not taking much by mouth. SUBJECTIVE VITAL SIGNS: Afebrile with stable vitals on 2.5 liters nasal cannula. GENERAL: The patient is awake, alert, in no acute distress. ABDOMEN: Soft, appropriately tender. His overlying dressing was changed and there was some serosanguineous drainage. Telfa pooja were left alone today. ASSESSMENT Postop day #3 status post exploratory laparotomy with colostomy takedown and lysis of adhesions - appropriate clinical progress. PLAN 1. Continue with full liquid diet today. 2. Decrease IV fluid rate. 3. Recheck lab tomorrow. 4. Given that the patient continues to have fairly significant hematuria I would like to leave his Whatley catheter in place at least another day. EJD
[2017-04-25] MEDS: ONDANSETRON 4 MG/2 ML INJECTION IVP PRN (23:15)
[2017-04-26] MEDS: HYDROMORPHONE PCA 30mg/30ml VIAL IV PRN (03:42)
[2017-04-26] MEDS: LR 1,000 ML IV SCH ×3 (03:46→18:01)
[2017-04-26] MEDS: ACETAMINOPHEN 500 MG TABLET PO SCH ×3 (05:48→20:55)
[2017-04-26] MEDS: ENOXAPARIN 40 MG/0.4 ML INJECTION SQ SCH (10:17)
[2017-04-26] MEDS: LISINOPRIL 10 MG TABLET PO SCH (10:18)
[2017-04-26] MEDS: AMLODIPINE 5 MG TABLET PO SCH (10:18)
[2017-04-26] MEDS: ONDANSETRON 4 MG/2 ML INJECTION IVP PRN (10:31)
[2017-04-26] MEDS ORDERED: SIMETHICONE 80 MG CHEWABLE TABLET PO PRN (14:14)
[2017-04-27] MEDS: ONDANSETRON 4 MG/2 ML INJECTION IVP PRN ×2 (03:00→15:38)
[2017-04-27] MEDS: ACETAMINOPHEN 500 MG TABLET PO SCH ×3 (05:19→21:40)
[2017-04-27] MEDS: ENOXAPARIN 40 MG/0.4 ML INJECTION SQ SCH (09:14)
[2017-04-27] MEDS: LISINOPRIL 10 MG TABLET PO SCH (09:14)
[2017-04-27] MEDS: LR 1,000 ML IV SCH (09:15)
[2017-04-27] MEDS: AMLODIPINE 5 MG TABLET PO SCH (09:15)
[2017-04-27] MEDS: METOCLOPRAMIDE 10mg/2ml INJECTION IVP PRN (09:27)
--- NOTE | 2017-04-27 09:28 | Progress Note ---
Emma LORA OF VISIT 04/23/2017 REASON FOR VISIT Postoperative followup. SUBJECTIVE DATA Seth has been doing well. He has been using a significant amount of his REDEYE GUNNER. The nurses report that he has not been ambulating. He recently had an elevated temperature of 100.9. He feels like he is doing better than he was earlier today. He denies any nausea. OBJECTIVE VITALS: Temperature 100.9, with other vital signs stable on room air. ABDOMEN: Soft, appropriately tender. His dressing is clean, dry and intact. IMPRESSION 1. Postop day #1 status post exploratory laparotomy with reversal of end colostomy - appropriate clinical progress. 2. Hypertension - chronic, controlled. PLAN 1. Allow clear liquid diet without carbonation. 2. Due to his mild temperature I will add scheduled Tylenol to his pain regimen. 3. Recheck CBC in the morning. VALENTINA
--- NOTE | 2017-04-27 09:29 | Progress Note ---
DATE OF VISIT 04/26/2017 REASON FOR VISIT Postoperative followup. SUBJECTIVE Seth has been mostly lying in bed today. His nurse reports he has had more of a flat affect. He reports increasing gas pain today but did say that he passed a small amount of flatus. His pain has been controlled with his TEXTILE CONVERTER. He has been tolerating his full liquid diet but has mostly been drinking apple juice. OBJECTIVE Afebrile with stable vitals. ABDOMEN: Soft, appropriately tender. His dressing was changed and had less serosanguineous output. His Telfa pooja were withdrawn and trimmed back approximately 1 cm each. ASSESSMENT 1. Postop day #4 status post exploratory laparotomy with end colostomy takedown and lysis of adhesions - making appropriate progress. 2. Hypertension - chronic, controlled. PLAN 1. Since his hematuria has resolved, I will discontinue his Whatley catheter today. 2. I do not want to advance his diet since he is complaining of increased gas pain. I will allow him toast and crackers. 3. Ambulation was encouraged. 4. Simethicone was ordered earlier by telephone. VALENTINA
[2017-04-27] MEDS ORDERED: IBUPROFEN 800 MG TABLET PO PRN (17:31)
[2017-04-27] MEDS: OXYCODONE/APAP 7.5 MG/325 MG TABLET PO PRN ×2 (18:23→19:41)
[2017-04-28] MEDS: LR 1,000 ML IV SCH ×4 (00:08→21:23)
[2017-04-28] MEDS: OXYCODONE/APAP 7.5 MG/325 MG TABLET PO PRN ×4 (00:50→20:37)
[2017-04-28] MEDS: ACETAMINOPHEN 500 MG TABLET PO SCH ×2 (05:47→13:54)
--- NOTE | 2017-04-28 06:53 | Progress Note ---
DATE OF VISIT 04/27/2017 REASON FOR VISIT Postoperative followup. SUBJECTIVE Seth is doing okay. He has walked more today after the encouragement of the nursing staff. He has been tolerating his liquids but has only been taking a small amount by mouth due to concern that he may be more bloated or cause problems. He has been using the ACOUSTICS TEACHER but desires to get off of the ACOUSTICS TEACHER in anticipation of going home. He says he has been passing much more flatus today and had a small amount of liquid stool per rectum. OBJECTIVE VITAL SIGNS: Afebrile with stable vitals on room air. GENERAL: The patient is awake and alert, in no acute distress. ABDOMEN: Dressing is intact with minimal drainage on the ABD in the area of his colostomy incision. ASSESSMENT 1. Postop day #5 status post exploratory laparotomy with end colostomy takedown and lysis of adhesions - appropriate clinical progress. 2. Hypertension - chronic, controlled. PLAN 1. DC ACOUSTICS TEACHER and change to oral oxycodone 7.5 with Dilaudid for breakthrough and Motrin for mild pain. 2. Continue IV fluids. 3. Await improvement of bowel function prior to advance of diet. MTDD
[2017-04-28] MEDS: LISINOPRIL 10 MG TABLET PO SCH (08:50)
[2017-04-28] MEDS: ENOXAPARIN 40 MG/0.4 ML INJECTION SQ SCH (08:51)
[2017-04-28] MEDS: AMLODIPINE 5 MG TABLET PO SCH (08:51)
[2017-04-28] MEDS: DOCUSATE SODIUM 100 MG CAPSULE PO SCH (20:38)
[2017-04-29] MEDS: OXYCODONE/APAP 7.5 MG/325 MG TABLET PO PRN ×4 (03:38→20:00)
[2017-04-29] MEDS: LISINOPRIL 10 MG TABLET PO SCH (08:58)
[2017-04-29] MEDS: ENOXAPARIN 40 MG/0.4 ML INJECTION SQ SCH (08:59)
[2017-04-29] MEDS: DOCUSATE SODIUM 100 MG CAPSULE PO SCH (08:59)
[2017-04-29] MEDS: AMLODIPINE 5 MG TABLET PO SCH (08:59)
[2017-04-29 11:59] VITALS: RESP 16
[2017-04-29 15:34] VITALS: O2SAT 97
[2017-04-29 16:18] VITALS: BP 124/73; PULSE 82; TEMP 98.6
--- NOTE | 2017-04-29 16:35 | Progress Note ---
DATE OF VISIT 04/28/2017 REASON FOR VISIT Postoperative followup. SUBJECTIVE Seth is doing fairly well. He has not used any IV narcotic today but has switched to pain pills only. He has not had more stool per rectum but continues to pass flatus. He has been tolerating a regular diet. OBJECTIVE VITAL SIGNS: Afebrile with stable vitals on room air. GENERAL: The patient is awake, alert, in no acute distress. ABDOMEN: His dressing was changed and Telfa pooja at approximately every third position were removed from along his incision. The other pooja were withdrawn and trimmed back to a shorter length by 1 cm. The colostomy pooja were all three left in position but trimmed back. There was total of 14 pooja left in position. ASSESSMENT 1. Postop day #6 status post exploratory laparotomy with end colostomy takedown and lysis of adhesions - improving clinically. 2. Hypertension - chronic, controlled. PLAN 1. Hep-Lock IV tonight. 2. Reevaluate tomorrow to determine if bowel function and tolerance of diet is appropriate for dismissal. [facility]ITAL[facility]
--- NOTE | 2017-04-29 20:05 | Discharge Instructions ---
Discharge Plan - Med Rec/Dispo Prescriptions: New Oxycodone HCl/Acetaminophen [Oxycodon-Acetaminophen 7.5-325] 1 - 2 tab PO Q6H PRN #60 tab PRN Reason: Pain Docusate Sodium [Colace] 100 mg PO BID capsule Ibuprofen [Motrin] 800 mg PO Q8H PRN tablet PRN Reason: Pain Continue Aspirin 81 mg PO DAILY #0 Amlodipine Besylate 5 mg PO DAILY #30 tab Lisinopril [Prinivil] 10 mg PO DAILY Pravastatin [Pravachol] 20 mg PO HS Discontinued Oxycodone/Apap 10/325 [Percocet 10/325] 1 tab PO Q4H PRN PRN Reason: Pain
--- NOTE | 2017-05-07 07:15 | Progress Note ---
DATE OF VISIT 04/29/2017 REASON FOR VISIT Postoperative followup. SUBJECTIVE Seth has done well today and feels like he is ready for dismissal. He has tolerated a regular diet. He has had some more bowel function. OBJECTIVE VITAL SIGNS: Afebrile with stable vitals on room air. ABDOMEN: His dressing is intact with minimal drainage on his ABD. ASSESSMENT 1. Postop day #7 status post exploratory laparotomy with end colostomy takedown and lysis of adhesions - ready for dismissal. 2. Hypertension - chronic, controlled. PLAN 1. Dismiss. 2. See discharge instructions. 3. I will see him back tomorrow to back out his Telfa pooja again. VALENTINA
--- NOTE | 2017-05-07 14:52 | Discharge Summary ---
ATTENDING PHYSICIAN Harjeet Schmidt MD REASON FOR ADMISSION Scheduled surgery. DISCHARGE DIAGNOSES 1. Personal history of diverticulitis with intra-abdominal abscess status post Arnold's procedure. 2. End colostomy with desire for reversal. 3. Extensive intra-abdominal adhesions. 4. Multiple small incisional hernias. 5. Parastomal hernia containing omentum. 6. Hypertension - chronic, controlled. PROCEDURES 1. The patient underwent exploratory laparotomy with lysis of adhesions x 150 minutes and end colostomy takedown with coloproctostomy via circular end-to-end stapled anastomosis as well as primary repair of multiple small incisional hernias on 04/22/[address] Schmidt with the assistance of Dr. Corrales. 2. The patient had a cystoscopy with bilateral ureteral catheter insertion on 04/22/[address] Rajat Roberson. CONSULTATIONS None - Dr. Roberson performed cystoscopy with ureteral stent placement at the start of the procedure but did not follow along with the patient. LABORATORY DATA See Electronic Medical Record. BRIEF HOSPITAL COURSE The patient was admitted on the morning of surgery. He had a procedure done by Dr. Roberson followed by his extensive surgery to reverse his colostomy. He did well with the procedure and following the procedure was transferred to the floor. He was given a Dilaudid TRADER to help with pain control. On postop day #1 he was doing well but was using a fairly significant amount of his TRADER. He was not ambulating well and had a mild temperature up to 100.9. Tylenol was ordered to help with this. He was advanced to a clear liquid diet without carbonation. On postop day #2 the patient was doing slightly better and was using his TRADER somewhat less. He had some mild hematuria and given the pelvic surgery it was felt that his Whatley catheter should be continued. On postop day #3 he was advanced to a full liquid diet. His IV fluid rate was decreased and his catheter was continued for another day due to hematuria. On postop day #4 of the patient's hematuria had resolved and the catheter was removed. He had been passing some flatus. He was not taking significant oral intake so he was kept on a full liquid diet but toast and crackers were allowed. On postop day #5 the patient was doing well and was switched from his TRADER to oral Percocet. His fluids were continued since he had not been drinking well. He was passing more flatus. On postop day #6 the patient had transitioned over to oral pain medication only. He was passing more flatus but had still not had any more stool per rectum. His IV fluids were stopped and he had been advanced to regular diet. On postop day #7 the patient was doing well and was ready for dismissal. He had had Telfa pooja placed at the time of surgery and these were slowly withdrawn every other day starting on postop day #2. DISPOSITION Home by private vehicle. CONDITION ON DISCHARGE Good. DISCHARGE INSTRUCTIONS Diet: Regular diet as tolerated. Activity: No heavy pushing, pulling, straining, or lifting over 15 pounds for a month following surgery. Wound care: The patient should keep his wound covered until office visit tomorrow. FOLLOWUP The patient should follow up with Dr. Schmidt for packing change at 11:00 a.m. tomorrow. MEDICATIONS See discharge medical reconciliation. VALENTINA
== END 2017-04-29 20:35 | disposition home or self-care (01) | DRG 331 ==
LOC: SRG 04-22 05:59
PROVIDERS: ADMIT Surgery; ATTEND Surgery